=== PATIENT | female | born 1965 | race Caucasian/White ===

== ENCOUNTER 2017-03-14 14:58 | Observation (INO) | payer OTHER ==
[2017-03-14 15:22] LABS: Hematocrit 45 % (35-47); Hemoglobin 14.8 g/dl (12.0-16.0); Mean Corpuscular HGB Conc 33 g/dl (31-36); Mean Corpuscular Hemoglobin 30 pg (27-31); Mean Corpuscular Volume 90 fL (80-97); Mean Platelet Volume 9 um3 (7.4-10.4); Red Blood Count 4.99 10^6/ul (4.0-5.4); Red Cell Distribution Width 14 % (10.5-15)
--- NOTE | 2017-03-14 15:27 | RAD ---
INDICATION: Left-sided weakness. COMPARISON: Comparison is made with a prior chest x-ray study from June 18, 2013. TECHNIQUE: A portable view of the chest was obtained. FINDINGS: Cardiac and mediastinal contours appear to be within normal limits. The lungs are clear. No pleural effusion is seen. IMPRESSION: NO EVIDENCE FOR ACUTE DISEASE.
[2017-03-14 15:37] LABS: Albumin 4.5 g/dL (3.2-5.2); BUN/Creatinine Ratio 12.8 (8-20); Calcium 9.5 mg/dL (8.6-10.3); EGFR African American 99.4 (>60); EGFR Non-African American 77.3 (>60); Globulin 2.8 g/dL (2-4); HDL Cholesterol 55.6 mg/dL; Total Bilirubin 0.5 mg/dL (0.2-1.0); Total Protein 7.3 g/dL (6.4-8.9)
--- NOTE | 2017-03-14 15:38 | RAD ---
INDICATION: Code espinoza, neurologic changes. COMPARISON: There are no prior studies available for comparison. TECHNIQUE: Contiguous axial sections of the brain were obtained from the skull base to the vertex without contrast. FINDINGS: The ventricles, cisterns and sulci are within normal limits. No significant focal abnormality or mass effect is seen. There is no evidence for hemorrhage. No significant focal osseous abnormality is seen. The visualized portion of the paranasal sinuses and mastoid air cells appear clear. The results of this exam were called to referring clinician at 1520 hours. IMPRESSION: NO EVIDENCE FOR GROSS ACUTE INFARCT, MASS EFFECT OR HEMORRHAGE.
[2017-03-14 15:40] LABS: Troponin I 0.01 ng/mL (<0.04)
[2017-03-14] MEDS ORDERED: Iohexol 350* (CONTRAST) 500 ML MDV IV ONE (16:31)
[2017-03-14] MEDS ORDERED: Albuterol HFA INHALER* 8 gm MDI INH PRN (16:44)
[2017-03-14] MEDS ORDERED: Albuterol 2.5 MG/3 ML NEB.SOL* (0.083%) INH PRN (16:44)
--- NOTE | 2017-03-14 17:37 | RAD ---
Indication: Right-sided facial droop. Image sequences: Sagittal and axial T1, axial T2, diffusion and FLAIR images of the brain were obtained. Motion artifact is present. Ventricular structures are midline. No midline shift is noted. Extraction spaces are unremarkable. The brainstem and cerebellopontine angles are unremarkable. No evidence of vasogenic edema is noted. No evidence of restriction of diffusion is noted. No other intracranial mass or hemorrhage is noted. No other high or low signal lesions are identified. The orbits and paranasal sinuses are grossly unremarkable. IMPRESSION: No intracranial lesion is identified. No restriction of diffusion is present.
--- NOTE | 2017-03-14 17:58 | ED ---
Kassidy Carvalho Matthew, scribed for Jason Rivas MD on 03/14/17 at 1502 . Neurological HPI - HPI Summary HPI Summary: A 51 y/o female presents to the ED with left sided weakness. Per EMS, the patient also had right sided facial droop when smiling. While in the ambulance, the EMS noticed the patient was having difficulty answering simple questions such as her address, number of children, date, and current president. The EMS was called to the patient's location for a complaint of chest pain and was given NTG and aspirin POT RUNNER. Currently, the patient knows her name and age. - History of Current Complaint Stated Complaint: AMS Hx Obtained From: Patient, EMS Hx Last Menstrual Period: It ended 05/20 Timing: Constant Current Severity: Moderate Neurological Deficit Location: Facial, LUE, LLE Character: Motor Weakness - mild left leg weakness, and minimal LUE weakness, Paralysis - minimal right sided facial droop, Impaired Speech - speech apahsia in the EMS Aggravating: Unknown Alleviating: Unknown - Allergy/Home Medications Allergies/Adverse Reactions: Allergies Allergy/AdvReac Type Severity Reaction Status Date / Time No Known Allergies Allergy Verified 06/29/16 14:11 Home Medications: Home Medications Albuterol HFA INHALER* [Ventolin HFA Inhaler*] 2 puff INH Q4H PRN 03/14/17 [ History Confirmed 03/14/17] Cyanocobalamin INJ * [Vitamin B12 INJ *] 1,000 mcg IM Q30D 03/14/17 [History Confirmed 03/14/17] Cyclobenzaprine TAB* [Flexeril 10 MG TAB*] 10 mg PO TID PRN 03/14/17 [History Confirmed 03/14/17] Ibuprofen TAB* [Advil TAB*] 1,200 mg PO BID PRN 03/14/17 [History Confirmed ] Naproxen TAB* [Naprosyn 250 mg TAB*] 500 mg PO BID PRN 03/14/17 [History Confirmed 03/14/17] Oxybutynin TAB* [Ditropan TAB*] 5 mg PO BID 03/14/17 [History Confirmed 03/14/17 ] PARoxetine HCL TAB* [Paxil TAB*] 40 mg PO DAILY 03/14/17 [History Confirmed ] clonazePAM TAB(*) [KlonoPIN TAB(*)] 1 mg PO BID PRN MDD 2 mg 03/14/17 [History Confirmed 03/14/17] PMH/Surg Hx/FS Hx/Imm Hx Endocrine/Hematology History: Denies: Hx Diabetes Cardiovascular History: Reports: Hx Angina Denies: Hx Congestive Heart Failure, Hx Coronary Artery Disease, Hx Hypercholesterolemia, Hx Hypertension, Hx Myocardial Infarction, Hx Pacemaker/ ICD, Hx Valvular Heart Disease Respiratory History: Reports: Hx Asthma, Hx Chronic Obstructive Pulmonary Disease (COPD) History: Denies: Hx Renal Disease Musculoskeletal History: Reports: Hx Back Problems Sensory History: Reports: Hx Contacts or Glasses Denies: Hx Hearing Aid Opthamlomology History: Reports: Hx Contacts or Glasses Neurological History: Reports: Hx Migraine Psychiatric History: Reports: Hx Depression Denies: Hx Panic Disorder - Cancer History Hx Chemotherapy: No Hx Radiation Therapy: No - Surgical History Surgery Procedure, Year, and Place: Lt KNEE - ARTHROSCOPIC -09/2015. CHOLECYSTECTOMY- 1988. TUBAL LIGATION -1985. TONSILECTOMY. APPENDECTOMY Hx Anesthesia Reactions: No - Immunization History Date of Tetanus Vaccine: unknown Infectious Disease History: Reports: Hx of Known/Suspected MRSA - Social History Alcohol Use: Occasionally Substance Use Type: Reports: None Smoking Status (MU): Current Every Day Smoker Review of Systems Constitutional: Negative Eyes: Negative ENT: Negative Positive: Chest Pain Respiratory: Negative Gastrointestinal: Negative Genitourinary: Negative Musculoskeletal: Negative Skin: Negative Neurological: Other - speech apahsia - since resolved Positive: Weakness - left sided Psychological: Normal All Other Systems Reviewed And Are Negative: Yes Physical Exam - Summary Physical Exam Summary: VITAL SIGNS: Reviewed. GENERAL: Patient is a well developed and nourished female seems fatigued. Patient is not in any acute respiratory distress. HEAD AND FACE: No signs of trauma. No ecchymosis, hematomas or skull depressions. No sinus tenderness. EYES: PERRLA, EOMI x 2, No injected conjunctiva, no nystagmus. No photophobia. EARS: Hearing grossly intact. Ear canals and tympanic membranes are within normal limits. MOUTH: Oropharynx within normal limits. NECK: Supple, trachea is midline, no adenopathy, no JVD, no carotid bruit, no c- spine tenderness, neck with full ROM. No meningeal signs, no Kernig's or brudzinskis signs. CHEST: Symmetric, no tenderness at palpation LUNGS: Clear to auscultation bilaterally. No wheezing or crackles. CVS: Regular rate and rhythm, S1 and S2 present, no murmurs or gallops appreciated. ABDOMEN: Soft, non-tender. No signs of distention. No rebound no guarding, and no masses palpated. Bowel sounds are normal. EXTREMITIES: FROM in all major joints, no edema, no cyanosis or clubbing. NEURO: Alert and oriented x 3. NIH =2 SKIN: Dry and warm Triage Information Reviewed: Yes Vital Signs On Initial Exam: Temp Pulse Resp BP Pulse Ox 98.4 F 62 20 146/65 100 03/14/17 15:25 03/14/17 15:25 03/14/17 15:25 03/14/17 15:25 03/14/17 15:25 Vital Signs Reviewed: Yes Diagnostics - Laboratory Result Diagrams: 03/14/17 15:15 03/14/17 15:15 Lab Statement: Any lab studies that have been ordered have been reviewed, and results considered in the medical decision making process. - Radiology CXR Xray Interpretation: No Acute Changes - IMPRESSION: NO EVIDENCE FOR ACUTE DISEASE. Radiology Interpretation Completed By: Radiologist - CT Brain CT CT Interpretation: No Acute Changes - IMPRESSION: NO EVIDENCE FOR GROSS ACUTE INFARCT, MASS EFFECT OR HEMORRHAGE. CT Interpretation Completed By: Radiologist - EKG 15:09 Cardiac Rate: NL - 63 bpm EKG Rhythm: Sinus Rhythm EKG Interpretation: No ST elevation NIH Scale - NIH Scale Level of Consciousness: Alert/Keenly Responsive Ask Patient the Month and His/Her Age: Both Correct Ask Pt to Open/Close Eyes and Gas Scrubber Operator/Release Non-Paretic Hand: Both Correctly Best Gaze (Only Horizontal Eye Movement): Normal Visual Field Testing: No Visual Loss Facial Paresis-Pt to Smile & Close Eyes or Grimace Symmetry: Minor Paralysis Motor Function - Right Arm: No Drift-Holds 10 Seconds Motor Function - Left Arm: No Drift-Holds 10 Seconds Motor Function - Right Leg: No Drift-Holds 10 Seconds Motor Function - Left Leg: Drifts LT 10 seconds Limb Ataxia-Must be out of Proportion to Weakness Present: Absent Sensory (Use Pinprick to Test Arms/Legs/Trunk/Face): Normal Best Language (Describe Picture, Name Items): No Aphasia Dysarthria (Read Several Words): Normal Extinction and Inattention: No Abnormality Total Score: 2 Course/Dx - Course Assessment/Plan: A 51 y/o female presents to the ED with left sided weakness. Per EMS, the patient also had right sided facial droop when smiling. While in the ambulance, the EMS noticed the patient was having difficulty answering simple questions such as her address, number of children, date, and current president. The EMS was called to the patient's location for a complaint of chest pain and was given NTG and aspirin POT RUNNER. Currently, the patient knows her name and age. Blood work WNL. Head CT shows no evidence for gross acute infarct , mass effect or hemorrhage. CXR shows no active disease. Discussed the case with Dr. Hartley who came to see the patient and recommenced an MRI and admission into [facility]. She c/o of chest pain while at the doctors office and was give aspirin and NTG POT RUNNER. The symptoms have resolved. At this point I discussed my physical exam findings with Dr. Thomas admission. She is hemodynamically stable and A&Ox3. - Differential Dx Differential Diagnoses Neuro: Positive: Cerebrovascular Accident, Seizure Disorder, Transient Ischemic Attack - Diagnoses Provider Diagnoses: chest pain r/o acs, TIA (transient ischemic attack) During the Visit The Following Alert/Code Occurred: Code Young - Called at 15:00 - Physician Notifications Discussed Care of Patient With: Dr. Hartley (Neurologist) at 15:11 -- Notified of patient's history and will consult on the patinet. Dr. Thomas (Hospitalist ) at 16:07 -- Notified of patient's history and will admit the patient into his services. Discharge - Discharge Plan Condition: Stable Disposition: ADMITTED TO [facility] Referrals: Kyree Torre MD [Primary Care Provider] - The documentation as recorded by the Kassidy cowart Matthew accurately reflects the service I personally performed and the decisions made by me, Jason Rivas MD.
--- NOTE | 2017-03-14 18:47 | RAD ---
Indication: Transient ischemic attack. Contrast: Administered 80.0 ml of OMNIPAQUE 350 mgi/ml CTA of the neck and head was performed after IV contrast administration. Coronal and sagittal reconstructed images were obtained. The origins of the great vessels are unremarkable. The common carotid arteries demonstrates no significant stenosis in the neck. The right internal carotid artery demonstrates no significant stenosis. No carotid dissection is noted. The left internal carotid artery demonstrates no significant stenosis although minimal calcified plaque is noted in the proximal left internal carotid artery. No evidence of carotid artery dissection is noted. Vertebral arteries are patent bilaterally. The lung apices are grossly unremarkable. Inferior thyroid lobes are unremarkable. Submandibular glands and parotid glands are unremarkable. No significant lymphadenopathy is noted. CTA of the head demonstrates no aneurysmal dilatation. No branch occlusion is identified. Anterior and middle cerebral arteries are grossly unremarkable. Posterior cerebral arteries are unremarkable. No evidence of branch occlusion is noted. IMPRESSION: MINIMAL CALCIFIC PLAQUE IS NOTED IN THE PROXIMAL LEFT INTERNAL CAROTID ARTERY. NO HEMODYNAMICALLY SIGNIFICANT STENOSIS IS NOTED. CTA OF THE HEAD DEMONSTRATES NO BRANCH OCCLUSION OR ANEURYSMAL DILATATION. NO EVIDENCE OF CAROTID ARTERY OR VERTEBRAL ARTERY DISSECTION IS NOTED.
[2017-03-14] MEDS: Mometasone/Formoter 200/5 MDI INH SCH (20:31)
[2017-03-14] MEDS: Oxybutynin TAB* 5 MG PO SCH (21:35)
[2017-03-14] MEDS: Heparin VIAL(*) 5000 UNITS/ML VIAL (FIVE THOUSAND) SUBCUT SCH (21:35)
--- NOTE | 2017-03-14 21:53 | CONS ---
NEUROLOGY CONSULTATION: DATE OF CONSULTATION: 03/14/17 LOCATION: She is in the emergency, room 14, to be admitted. REFERRING PHYSICIAN: Dr. Rivas. PRIMARY CARE PHYSICIAN: Dr. Kyree Torre. CHIEF COMPLAINT: Chest pain, difficulty with speech and confusion, numbness. HISTORY OF PRESENT ILLNESS: Heidi Wood is a 51-year-old right-handed woman known to me from recent evaluation for a chronic idiopathic polyneuropathy. She says that for the last few days to a week, she has not been feeling well. She has had episodes of chest pain today and yesterday. She has noted numbness around her mouth yesterday and again today as well. It has happened at least 3 or 4 times. She has not been sleeping well and she has not had much appetite and she has not an explanation for that. She has not been ill recently in terms of fevers or flu or infectious illness symptoms. She was seen in Dr. Torre's office today she said to discuss further treatment of her arthritis, which has really been bothering her. She reported chest pain there and an ambulance was summoned and she was brought into the emergency room. She was given a sublingual nitroglycerin and aspirin. The chest pain resolved. She notes numbness currently on the left side of her jaw and a little bit into the congregational area. She feels intermittently confused since yesterday if not for even longer this past week. She has not any episodes of unresponsiveness. She did have a fall going down some stairs earlier this week and she said she bumped her head, but did not get knocked out. She did not report it to anybody or seek medical attention. Her , Neal, comes in later and said that he has not reported anything to her lately about chest pain or numbness or falls but that she generally is very stoic about these things. She does have a history of migraines with visual and sensory auras in the past, but she has not had a migraine for months she says. She says there is no prior history of cardiac disease. I do note she saw Dr. Conrad in 2012 for chest pain and had a negative Myoview study and to determine that she had noncardiac chest pain. PAST MEDICAL HISTORY: Notable for chronic idiopathic polyneuropathy, ongoing tobacco dependence, COPD, anxiety and depression. MEDICATIONS AT HOME: Consists of: 1. Paxil 40 mg p.o. daily. 2. Ditropan 5 mg p.o. b.i.d. 3. Symbicort 1 puff b.i.d. 4. Clonazepam 1 mg p.o. b.i.d. p.r.n. 5. Cyclobenzaprine 10 mg p.o. t.i.d. ALLERGIES: She does not have any drug allergies. PSYCHOSOCIAL HISTORY: She lives at home with her . She smokes. She does not drink alcohol. FAMILY HISTORY: Noncontributory. REVIEW OF SYSTEMS: Notable for the one fall mentioned above, no recent headaches, but long history of migraines. She denies any increased stressors recently. No recent signs or symptoms of infectious illness. She has not been sleeping well and has been waking up frequently without explanation. She has not had much appetite, so she is not eating much. She has chronic numbness in her feet. She has increased pain in her hips lately. PHYSICAL EXAMINATION: She is well nourished, well hydrated, overweight. Temperature 98.4 temporally, blood pressure 140/60, heart is running about 70 and regular, respirations 18, oxygen saturation is 100% on 2 L. Lungs are clear bilaterally. Heart is in a regular rate and rhythm without murmurs. Carotid pulses are present and there are no bruits. Oral mucosa is moist and atraumatic. Head is atraumatic. She has hammertoe deformities in both feet. Neurologic Exam: Pupils react equally from 4 to 2 mm. Eye movements are full but just to be encouraged to track consistently where she tends to not follow commands in that regard. Visual vela are inconsistent with variable miscounts in both left and right vela. Facial musculature is symmetric. Facial sensation to light touch is reported as symmetric in all 3 divisions of the trigeminal nerve. Palate and tongue appear normal and tongue protrudes in the midline, and palate raises symmetrically. There is no dysarthria. Hearing is intact bilaterally and neck strength is present. Motor exam reveals normal strength in the upper extremities and distally in the upper extremities as well. There is pain with testing proximally at the hips but she has at least resistive strength. She has mild ankle dorsiflexor and more severe toe dorsiflexor weakness bilaterally. She has a pseudo drift with pronator drift testing with the left arm drifting upward and the right drifting down in full extension without pronation. Finger taps are purposeful in the right hand and normal on the left. Sensory exam is notable for absent light touch distally in the lower extremities. Sensory exam in the upper extremities to light touch is normal. Reflexes are intact and symmetric to the knees, grade 1 at the ankles. Plantars are flexor bilaterally. She has poor attention and concentration. At times, she was able to maintain good history with good recollection of the details. Other times, she just seems to drift off and lose her attention and concentration. It only takes a light touch or calling her name to get her to re -attend. Memory is patchy but most of it seems to be pretty accurate for the last several days. Her remote memory is intact. Language is fluent. DIAGNOSTIC STUDIES/LAB DATA: Includes a CT of the brain, the images of which I reviewed and it looks normal. Other laboratory data is notable for normal CBC, normal chemistry profile, troponin 0.01. EKG is reviewed and looks normal to me. IMPRESSION: Variable neurological symptoms without clear anatomical localization in the setting of chest pain. Onset of symptoms is variable over the last several days if not a week. I do not recommend TPA and I am not convinced this is a cerebrovascular process. Nevertheless, I think she should be admitted for a cerebrovascular workup in addition for workup for chest pain. I have discussed her case with Dr. Jono Thomas. Recommend she have an EEG this evening because of the inattentiveness and I have paged our echo vascular technologist. In addition, I would recommend that she have an MRI of the brain, transesophageal echocardiogram unless Cardiology recommends a transesophageal echo, and a CT angiogram of the neck and brain. A fasting lipid profile should be checked. She has been given an aspirin. I would recommend continue that for the time being. I should also note she did have a low vitamin B12 level earlier this year I believe right around the time of the diagnosis of neuropathy and she had been getting B12 injections. We will go ahead and recheck that level while she is here as well. I will follow her with you. [id number]/[facility] #: [id number] FELICITAS
--- NOTE | 2017-03-14 22:35 | HP ---
HISTORY AND PHYSICAL: DATE OF ADMISSION: 03/14/17 PRIMARY CARE PROVIDER: Kyree Torre MD ATTENDING PHYSICIAN: Jono Thomas MD* (dictated by Yu Vivar NP) CHIEF COMPLAINT: Left-sided weakness with right-sided facial droop when smiling , chest discomfort, and reported slurred speech at home. HISTORY OF PRESENT ILLNESS: Ms. Wood is a 51-year-old female with past medical history significant for COPD, migraines, narcolepsy, depression, and neuropathy who was at her primary care provider's office for complaints of chest discomfort that had been lasting for approximately 40 minutes. She had 3 or 4 episodes over the last week. The patient states that when these episodes started, she developed numbness first in her lower jaw that then went to her upper jaw during the episodes of chest pain. She also has noted intermittent slurred speech and some weakness. She has noticed that over the last week, she has been dropping things more with her left hand. She felt this was related to her arthritis. She has also noticed some confusion such as placing roast beef in the cupboard. The patient's primary care provider called EMS to transport the patient to the emergency room. It is noted that the patient was having difficulty answering simple questions such as her address, number of children, date, and the current president. The patient was given nitro sublingual and aspirin 324 mg and placed on 4 L of oxygen at the primary care provider's office. She was transported to the emergency room for further evaluation. While in the emergency room, the patient's chest pain resolved. She was found to be alert and oriented x3 with a NIH score of 2. The patient was seen in consultation by Neurology who felt that this was not likely a stroke, but requested MRI of her brain and head CTA in addition to an EEG. The patient denies any recent fever or chills. She does report chest discomfort over her whole chest. She states this different than pain she has had in the past and she presented for chest pain back in 2012, it was more left-sided pain. At that time, the patient underwent a stress test that was low risk. The patient denies any shortness of breath, but she also reports nausea with her pain and in addition to diaphoresis with pain and some dizziness. The patient had a head CT showing no evidence for gross infarct, mass effect, or hemorrhage. She also underwent a chest x-ray showing no evidence of acute disease. She had an EKG showing normal sinus rhythm at rate of 63. This EKG is similar to previous EKG. She had labs that were unremarkable. A troponin of 0.01. Hospitalists were asked to evaluate the patient for admission. PAST MEDICAL HISTORY: 1. Chronic obstructive pulmonary disease. 2. Posttraumatic stress disorder. 3. Migraines. 4. Narcolepsy. 5. Vitamin B12 deficiency. 6. Peripheral vascular disease. 7. Neuropathy. 8. Chronic low back pain. 9. Cervicalgia. 10. Depression. 11. Arthritis. PAST SURGICAL HISTORY: 1. Status post tubal ligation. 2. Status post tonsillectomy. 3. Status post appendectomy. 4. Status post left knee arthroscopy. HOME MEDICATIONS: Include: 1. Albuterol nebulizer 2.5 mg inhalation every 4 hours as needed for shortness of breath or wheeze. 2. Albuterol HFA inhaler 2 puff inhalation every 4 hours as needed for shortness of breath or wheeze. 3. Symbicort 160/4.5 mcg 1 puff inhalation twice daily. 4. Paxil 40 mg oral daily. 5. Oxybutynin 5 mg oral twice daily. 6. Naproxen 500 mg oral twice daily as needed for pain. 7. Ibuprofen 1200 mg oral twice daily as needed for headache. 8. Flexeril 10 mg oral 3 times daily as needed for muscle spasms. 9. Vitamin B12 1000 mcg intramuscularly every 30 days. 10. Clonazepam 1 mg oral twice daily as needed for anxiety. ALLERGIES: No known drug allergies. FAMILY HISTORY: The patient's father had a history of heart disease. She is unclear of the details. The patient's father and paternal grandmother had a history of diabetes mellitus. The patient's maternal grandmother had a history of breast cancer. SOCIAL HISTORY: The patient is a current smoker, smoking a half-a-pack a day for the last 25 years. She occasionally drinks alcoholic beverages. She denies use of any recreational drug use. She is unemployed. Her surrogate decision maker would be her sister, Maty Yanes, in the event that she is unable to make decisions for herself. REVIEW OF SYSTEMS: I performed a 14 point review of systems. All the pertinent positives and negatives are mentioned in the history of present illness. Remaining review of systems are negative. PHYSICAL EXAMINATION GENERAL APPEARANCE: The patient is alert, pleasant, appears to be in no acute distress. VITAL SIGNS: Temperature 98.4, heart rate 65, respiratory rate 14, O2 sat 99% on 2 liters via nasal cannula, and blood pressure 144/74. HEENT: Normocephalic, atraumatic. Pupils are equal and reactive to light. Extraocular movements are intact. RESPIRATORY: There is no accessory muscle use and the the lungs are clear to auscultation bilateral. CARDIOVASCULAR: Regular rate and rhythm. S1, S2 present. There is no murmur, rubs, or gallops heard. ABDOMEN: Soft, nontender, and nondistended. There are bowel sounds present x4. EXTREMITIES: There is no lower extremity edema. DP and PT pulses are 2+ and symmetric. MUSCULOSKELETAL: There is no clubbing or cyanosis noted. NEUROLOGIC: The patient is alert and oriented x4. Cranial nerves II through XII were grossly intact. The patient is able to do [id number] bilateral, but has slight difficulties with the left and missed her nose. The patient is able to do heel from ankle to knee bilateral but has a very slow movement with the left. The patient has good plantarflexion strength on both extremities, does not have good dorsiflex strength on the left. The patient's right hand rubble placer is weaker than the left hand rubble placer. The patient had some difficulties with extraocular eye movements. She was able to perform them, but needed a lots of direction to do it. PSYCHOLOGICAL: The patient is calm and cooperative. SKIN: There is no rashes or abnormalities seen. DIAGNOSTIC STUDIES/LAB DATA: Sodium 136, potassium 4.0, chloride 103, CO2 28, BUN 10, creatinine 0.78, and glucose 83. Troponin 0.01. White blood cell count 6.0, hemoglobin 14.8, hematocrit 45, and platelet count 221. EKG shows a sinus rhythm with a rate of 63. This EKG is similar to previous EKGs from 12/22/11 and 03/15/13. There were no acute signs of ischemia. Chest x-ray from today. Radiologist impression: No evidence of acute disease. Head CT from today. Radiologist impression: No evidence for gross acute infarcts, mass effect, or hemorrhage. IMPRESSION: Ms. Wood is a 51-year-old female with past medical history significant for chronic obstructive pulmonary disease, migraines, peripheral vascular disease, neuropathy and depression presents to the emergency room with complaints of chest discomfort and weakness. She was reported to have a right facial droop by EMS and slurred speech and odd behavior. She will be admitted as an observation for chest pain and CVA workup. ASSESSMENT/PLAN: 1. Right facial droop, slurred speech, confusion, mouth numbness, and weakness : The patient has had a brain CT with no evidence of gross acute infarct. Her neurological exam has some left lower extremity weakness and right upper extremity weakness. Per the patient's family, her facial droop has almost resolved and is just very slight on the right side. The patient has been seen by Dr. Hartley. She has an MRI and a head CTA pending. She will have an echo in the morning with a bubble study. She also had an EEG with studies. The read on that pending. We will check fasting lipids in the morning. We will also add a hemoglobin A1C to the patient's ER labs. We will monitor her on telemetry. The patient will have neurological checks. She will be able to have a diet when she has beside dysphagia screening and passes that and also have a physical therapy evaluation due to her weakness. She has a urinalysis pending. 2. Chest pain: The patient is currently chest pain free. She will be monitored on telemetry. We will trend her troponins. We will also check a hemoglobin A1C, fasting lipids, and order a chemical nuclear stress test in the morning. We will do chemical due to the patient's weakness, I do not believe, she will be able to walk on the treadmill. 3. Chronic obstructive pulmonary disease: The patient is currently not in exacerbation. She will be continued on her home Symbicort or auto-substitute here at the hospital. She will have albuterol inhalers and nebulizers as needed. 4. Depression: She will be continued on her home Paxil. 5. Fluids, electrolytes, and nutrition: She would be on a heart-healthy diet. 6. Code status: Full code. 7. DVTs prophylaxis: The patient is a moderate risk and will have subcu heparin. 8. Disposition: Observation for rule out transient ischemic attack and acute coronary syndrome. TIME SPENT: Time for this admission was 60 minutes and 35 minutes was spent face- to-face with the patient, discussing medications, past medical history, and the events leading to her arrival today and performing a physical examination. The case was reviewed with the attending, Dr. Thomas, who agrees with the plan of care. Reviewed by JEISON SCOTT-Randall 03/17/17 1607 CC: Kyree Torre MD * [id number]/[facility] #: [id number] MTDD
[2017-03-15 01:10] LABS: Urine Bilirubin Negative (Negative); Urine Glucose Negative (Negative); Urine Nitrite Negative (Negative)
[2017-03-15] MEDS: Heparin VIAL(*) 5000 UNITS/ML VIAL (FIVE THOUSAND) SUBCUT SCH ×2 (05:41→13:58)
[2017-03-15] MEDS: Mometasone/Formoter 200/5 MDI INH SCH (07:24)
[2017-03-15 07:42] VITALS: BP 134/54
[2017-03-15] MEDS: Oxybutynin TAB* 5 MG PO SCH ×2 (08:41→10:13)
[2017-03-15] MEDS: PARoxetine HCL TAB* 40 MG PO SCH ×2 (08:41→10:13)
[2017-03-15 09:12] LABS: HDL Cholesterol 46.9 mg/dL
--- NOTE | 2017-03-15 10:27 | ECHO ---
Patient: NEVA SAAB [facility] Rec#: [id number] : 1965 Date: 03/15/2017 Age: 51y Height: 182.88 cm / 72.0 in Weight: 99.79 kg / 219.9 lbs Sex: F BSA: 2.22 Room#: 431 Admit Date#: 03/14/2017 Type: Inpatient Referring: Yu Dean NP Reading: Andre Conrad MD Dock Operator: Leslie Victor RDCS,RDMS CC: Kyree Torre MD Transthoracic Echocardiogram Indication: TIA, CP BP: 120/57 HR: 58 Rhythm: Bradycardia Findings History: COPD, PVD, PTSD, migraines, smoker. Technical Comments: The study quality is fair. Completed 1015 Left Ventricle: The left ventricular chamber size is normal. Mild concentric left ventricular hypertrophy is observed. The estimated ejection fraction is 55-60%. There is no consistent Doppler evidence of clinically significant diastolic dysfunction. Left Atrium: The left atrium is mildly dilated. Right Ventricle: The right ventricular chamber size and systolic function are within normal limits. Right Atrium: The right atrial cavity size is normal. A patent foramen ovale is not demonstrated with color Doppler and agitated contrast. Aortic Valve: The aortic valve is trileaflet. The aortic valve leaflets are mildly thickened. There is a trace of aortic regurgitation. There is no evidence of aortic stenosis. Mitral Valve: The mitral valve leaflets do not appear thickened. There is mild mitral regurgitation. The mitral regurgitant jet is eccentric. There is no evidence of mitral stenosis. Tricuspid Valve: The tricuspid valve leaflets are normal. There is trace tricuspid regurgitation. Unable to estimate the right ventricular systolic pressure. Pulmonic Valve: The pulmonic valve appears normal. There is a trace pulmonic regurgitation. Pericardium: There is no significant pericardial effusion. Aorta: The aortic root appears normal. There is no dilatation of the aortic arch. Pulmonary Artery: The main pulmonary artery is not well visualized. Venous: The inferior vena cava appears normal in size. There is a greater than 50% respiratory change in the inferior vena cava dimension. Contrast: Intravenous agitated saline contrast was used to assess intracardiac shunting. Summary: There was not any prior study for comparison. Conclusions The left ventricular chamber size is normal. Mild concentric left ventricular hypertrophy is observed. The estimated ejection fraction is 55-60%. There is no consistent Doppler evidence of clinically significant diastolic dysfunction. The left atrium is mildly dilated. A patent foramen ovale is not demonstrated with color Doppler and agitated contrast. There is a trace of aortic regurgitation. There is mild mitral regurgitation. There is trace tricuspid regurgitation. Unable to estimate the right ventricular systolic pressure. There is a trace pulmonic regurgitation. In the RV from PLAX hyperechoic area adjacent to free wall, prominent ?moderator band or prominent eustachian valve in RV apex A4C Measurements Name Value Normal Range RVIDd (AP) 2D 1.8 cm (0.9 - 2.6) RVDdMajor (2D) 2.4 cm (2.2 - 4.4) RAd ISD 4CH 4 cm (3.4 - 4.9) RA (A4C)W 3.9 cm (2.9 - 4.6) IVSd (2D) 1 cm (0.6 - 1) LVPWd (2D) 1.1 cm (0.6 - 1) LVIDd (2D) 4.8 cm (3.6 - 5.4) LVIDs (2D) 2.5 cm - LV FS (2D) 48 % (25 - 45) Aortic Annulus 2 cm (1.4 - 2.6) Ao root diameter (2D) 2.7 cm (2.1 - 3.5) Ascending Ao 2.7 cm (2.1 - 3.4) Aortic arch 3.1 cm (1.8 - 3.4) LA dimension (AP) 2D 3.9 cm (2.3 - 3.8) LAd ISD 4CH 5.5 cm (2.9 - 5.3) LA ISD 4CH W 4.9 cm (2.5 - 4.5) Name Value Normal Range LA ESV SP 4CH (A/L) 73.52 ml - LA ESV SP 2CH (A/L) 98.63 ml - LA ESV BP (A/L) 90.33 ml - LA ESV BP (A/L) index 41 ml/m2 - LA ESV SP 4CH (MOD) 69.55 ml - LA ESV SP 2CH (MOD) 94.05 ml - Name Value Normal Range MV E-wave Vmax 1.2 m/sec - MV deceleration time 181.2 msec - MV A-wave Vmax 0.8 m/sec - MV E:A ratio 1.5 ratio - P. vein S-wave Vmax 0.7 m/sec - P. vein D-wave Vmax 0.4 m/sec - P. vein S:D Vmax ratio 1.7 ratio - P. vein A-wave duration 97 msec - LV septal e' Vmax 0.09 m/sec - LV lateral e' Vmax 0.1 m/sec - LV E:e' septal ratio 13.3 ratio - LV E:e' lateral ratio 12 ratio - Name Value Normal Range AV Vmax 1.4 m/sec - AV VTI 34.4 cm - AV peak gradient 8 mmHg - AV mean gradient 4.5 mmHg - LVOT Vmax 1 m/sec - LVOT VTI 26 cm - LVOT peak gradient 4 mmHg - LVOT mean gradient 2.2 mmHg - PIYUSH Vmax 0.7 m/sec - Name Value Normal Range MV Vmax 1.2 m/sec - MV VTI 34.7 cm - MV peak gradient 6 mmHg - MV mean gradient 2.7 mmHg - MV PHT 60 msec - MR Vmax 5.4 m/sec - MR VTI 220 cm - MR flow (PISA) 97.5 ml/sec - MR ERO 20 cm2 - MR PISA radius 0.7 cm - MR alias Vmax 35.34 cm/sec - MVA (PHT) 3.7 cm2 - Name Value Normal Range RAP 8 mmHg - IVC diameter 1.8 cm - Name Value Normal Range PV Vmax 0.7 m/sec - PV peak gradient 2 mmHg -
[2017-03-15] MEDS ORDERED: Ibuprofen TAB* 600 MG PO PRN (11:08)
[2017-03-15] MEDS ORDERED: Regadenoson* 0.4 MG/5 ML SYRINGE ONE (12:19)
--- NOTE | 2017-03-15 13:30 | RAD ---
Edited for charges. Indication: Chest pain. Myocardial perfusion scan was performed utilizing 1 day protocol. Rest myocardial perfusion was performed after intravenous injection of 10.7 mCi of technetium 99m tetrofosmin. Pharmacological stress was applied and 25.66 mCi of technetium 99 and tetrofosmin was injected for the stress portion of study. There is homogeneous distribution of the radiotracer throughout the left centered. There is no definite evidence of fixed or reversible perfusion defect identified. The ejection fraction at stress is 72%. Evaluation of wall motion demonstrates no focal wall motion abnormality. IMPRESSION: No evidence of fixed or reversible perfusion defect is identified. ASSESSMENT: Low risk Based on imaging criteria from ACC/AHA 2002 Guideline Update for the Management of Patients With Chronic Stable Angina Table 23. Noninvasive Risk Stratification. MTDD
--- NOTE | 2017-03-16 03:17 | EEG ---
ELECTROENCEPHALOGRAPHY: DATE OF STUDY: 03/14/17 - ROOM #431 LOCATION: She is in the emergency room to be admitted. REFERRING PHYSICIAN: Dr. Rivas. CLINICAL PROBLEM: Episodes of confusion and diminished responsiveness. Medications include paroxetine. Rule out seizures. REPORT: This 16-channel EEG is remarkable for background rhythms consisting of a well-formed alpha rhythm in the posterior derivations at 9 cycles per second, which is symmetric. Moderate voltage bifrontal beta rhythms are noted and are symmetric. The patient drowses intermittently with central and bitemporal beta rhythms noted. The patient may briefly sleep with vertex slowing, but does not clearly fall into stage 2 sleep. Activation procedures are not attempted. There are no focal, lateralized, or epileptiform abnormalities. CLINICAL IMPRESSION: Normal awake EEG. [id number]/[facility] #: [id number] [facility]
--- NOTE | 2017-03-19 07:14 | PN ---
Hospitalist Progress Note . HOSPITALIST DISCHARGE NOTE: See dc instructions and summary by me. Patient stable for dc dc instructions reviewed with the patient at the bedside. DC patient home today.
--- NOTE | 2017-03-19 10:02 | DS ---
CC: Dr. Kyree Torre DISCHARGE SUMMARY: DATE OF ADMISSION: 03/14/17 DATE OF DISCHARGE: 03/15/17 STATUS DURING HOSPITALIZATION: Observation. PRIMARY CARE PHYSICIAN: Kyree Torre MD. PRINCIPAL DISCHARGE DIAGNOSIS: Chest pain, status post low risk stress test, with concomitant vario us neurological symptoms without clear etiology - differential is broad, including complex migraine, posttraumatic stress disorder/anxiety, or sleep disordered breathing and effect of benzodiazepine, which was recently started. SECONDARY DIAGNOSES: 1. Chronic idiopathic polyneuropathy. 2. Ongoing tobacco dependence. 3. Chronic obstructive pulmonary disease. 4. Anxiety. 5. Depression. DISCHARGE MEDICATION REGIMEN: Stop Klonopin unless ordered to reinitiate - possibly symptoms relati ng to worsening of COPD and CO2 retention, which can cause morbilliform symptomatology. Continue: 1. Symbicort 160/4.5 strength - one puff inhaled twice daily. 2. Albuterol 2.5 mg strength, one inhalation every 4 hours as needed. 3. Paxil 40 mg by mouth daily. 4. Oxybutynin 5 mg by mouth twice daily. 5. Naprosyn 500 mg by mouth twice daily. 6. Ibuprofen twice daily as needed (deconflict with Naprosyn). 7. Albuterol HFA inhaler two puffs inhaled every 4 hours as needed for wheezing. 8. Flexeril 10 mg by mouth 3 times daily as needed for back pain. 9. Vitamin B12 injection every month. HISTORY OF PRESENT ILLNESS AND HOSPITAL COURSE: Please see the H and P by Dr. Jono Thomas as wel l as the neurology consultation by Dr. Florian Hartley. In brief, Ms. Wood is a 51-year-old right- handed woman known to Dr. Hartley in the outpatient setting for chronic idiopathic polyneuropathy. The patient reported that for the past few days to a week she has not feeling well. She had an epis ode of chest pain on the day of admission and the day prior to admission. She also noted numbness a round her mouth. This happened the past few days, about 3 or 4 times in total. The patient has not been sleeping well and has not had much appetite. She did describe recently starting Klonopin at [facility], which may have caused some problems for her. The patient had chest pain at Dr. Torre's office . She is also complaining of arthritis. The patient was also reporting numbness on the left side of her jaw and a little bit into her lutheran area. The patient did not report her symptomatology immed iately and her stated that she did not say anything to him about it. The patient was miriam t to the hospital and placed on observation status for a cardiac and neurology workup. Her workup i ncluded a nuclear medicine stress test, which was rated as low risk by ACC/AHA 2002 criteria. She di d have a brain MRI and head CTA. The brain MRI did not show any evidence of focal ischemic areas an d the CTA did not show any hemodynamically significant stenosis. She had a transthoracic echocardio gram, which besides showing some left ventricular hypertrophy, did not show any structural defects t hat would explain her presentation. The patient did have an EEG and this was rated as a normal awak e EEG. The patient's symptomatology largely resolved when I evaluated her on 03/15/17. We discusse d the possibility that the Klonopin use at night has worsened her COPD and perhaps caused some CO2 r etention, which can cause a variety of symptoms. Likewise, her anxiety/PTSD or history of complex m igraines could be reasonable explanations for this. At the point of discharge, she is asymptomatic. She is reassured by the various negative tests that were run during this hospitalization. I review ed all those results with her at the bedside and this took about 40 minutes to go through all of the m. The only medication change was the cessation of Klonopin, especially in the context of her fairl y significant medication regimen. She is going to follow up with Dr. Torre next week and with Dr. Karly sorto in the outpatient setting where she is already a patient. For more details regarding the hospitalization, please see the full medical record and the all test results. This is a highly summarized account of a complex hospitalization. CONDITION AT DISCHARGE: Stable. [id number]/[facility] #: [id number]
== END 2017-03-15 17:04 | disposition home or self-care (01) ==
LOC: ED 14:58 → MEDTELE 16:10
PROVIDERS: ADMIT Hospitalist; ATTEND Internal Medicine
DX: R07.9 Chest pain, unspecified (principal); R29.810 Facial weakness; R53.1 Weakness; R20.0 Anesthesia of skin; R47.81 Slurred speech; G60.9 Hereditary and idiopathic neuropathy, unspecified; I51.7 Cardiomegaly; J44.9 Chronic obstructive pulmonary disease, unspecified; G47.419 Narcolepsy without cataplexy; F41.9 Anxiety disorder, unspecified; F32.9 Major depressive disorder, single episode, unspecified; Z79.899 Other long term (current) drug therapy; F17.210 Nicotine dependence, cigarettes, uncomplicated
CPT/HCPCS: 36415; 70450; 70496; 70498; 70551; 71010; 78452; 80053; 80061; 81003; 83036; 83605; 84484; 85025; 85610; 85730; 86850; 86900; 86901; 87641; 93005; 93306; 94640; 95816; 96372; 99285; A9270-GY; A9502; G0378; J1644; J2785; Q9967

== ENCOUNTER 2017-06-18 08:49 | Day surgery (SDC) | payer OTHER ==
[~2017-06-18 08:49] MED LIST: Buffered Lidocaine 0.9% SYRIN* 5 ML/SYR SYRINGE INTRADERM ONE; Dexamethasone IV* 4 MG/ML 1 ML (4 MG) IV SLOW PU ONE; Famotidine IV* 10 MG/ML 2 ML (20 mg) IV ONE
[2017-06-18] MEDS ORDERED: ceFAZolin 2 GM PREMIX (*) 50 ML IVPB ONE (09:12)
[2017-06-18] MEDS ORDERED: Dexamethasone IV* 4 MG/ML 1 ML (4 MG) ONE (09:12)
[2017-06-18] MEDS ORDERED: Famotidine IV* 10 MG/ML 2 ML (20 mg) ONE (09:12)
[2017-06-18] MEDS ORDERED: HYDROcodone/ACETAMIN 5-325 MG* 1 TAB PO PRN (09:49)
[2017-06-18] MEDS ORDERED: PROCHLORPERAZINE INJ 5 MG/ML 2 ML VIAL IV PRN (09:49)
[2017-06-18] MEDS ORDERED: Propofol* 10 MG/ML 20 ML BTL IV PUSH ONE (10:04)
[2017-06-18] MEDS ORDERED: Lidocaine 2% PF * 5 ML VIAL ONE (10:04)
[2017-06-18] MEDS ORDERED: fentaNYL* 50 MCG/ML 2 ML VIAL (100 MCG VIAL) ONE ×4 (10:04→12:51)
[2017-06-18] MEDS ORDERED: Midazolam* 1 MG/ML 2 ML VIAL (2 MG) ONE (10:04)
[2017-06-18] MEDS ORDERED: Ketorolac INJ* 30 MG/ML 1 ML VIAL ONE (10:36)
[2017-06-18] MEDS ORDERED: Ondansetron INJ* 2 MG/ML VIAL ONE (11:31)
[2017-06-18] MEDS ORDERED: oxyCODONE/Acetamin 5/325 MG* TAB ONE (12:51)
[2017-06-18] MEDS ORDERED: PROCHLORPERAZINE INJ 5 MG/ML 2 ML VIAL ONE (12:51)
[2017-06-18] MEDS: fentaNYL* 50 MCG/ML 2 ML VIAL (100 MCG VIAL) IV PRN ×2 (12:53→12:58)
[2017-06-18] MEDS: oxyCODONE/Acetamin 5/325 MG* TAB PO PRN ×2 (12:55→12:56)
[2017-06-18 15:44] VITALS: BP 132/65
--- NOTE | 2017-06-19 01:01 | OP ---
DATE OF OPERATION: 06/18/17 - [facility] DATE OF : 61 SURGEON: Hector Camilo MD ANESTHESIOLOGIST: Sharon Jimenez MD ANESTHESIA: General PRE-OP DIAGNOSIS: Torn left peroneal tendon and claw toe deformity 1, 2, 3, 4 and 5 toes. POST-OP DIAGNOSIS: Torn left peroneal tendon and claw toe deformity 1, 2, 3, 4 and 5 toes with some partial thickness tearing of the peroneus brevis tendon. OPERATIVE PROCEDURE: DESCRIPTION OF PROCEDURE: The patient was taken to the operating room where a longitudinal incision was made behind the fibula down toward the fifth metatarsal base. We were careful to preserve the sural nerve and the subcutaneous tissue. The retinaculum was opened behind the fibula to allow full visualization of the peroneal tendon. The tendon itself was intact, but there was thickening and some degenerative striations behind the fibula. These were debrided with the 15-blade and then tubularizing the tendon with a running 4-0 Vicryl suture. The peroneus longus tendon was intact; however, there was a stenosis of the tendon distally at the peroneal tubercle. So this was opened with an 15-blade and then we excised completely the peroneal tubercle with the rongeur and a bone tamp. Both tendons appeared to be intact, gliding well at this point, so we repaired the retinaculum with through bone sutures with #1 Vicryl and closed the subcu with 2-0 Vicryl and darwin. We then performed an elliptical incisions over the second, third and fourth PIP joints of the toes. Condyles were removed with the small micro sagittal saw and then we prepared this for the PRO-TOE implants. This involved drilling a guide pain in the proximal phalanx and the small broach in the middle phalanx. The implants were then placed sequentially with the screw in base and the [place] broadened-blade, which was used to anchor the middle phalanx. Two, three, four and five toes were then closed with interrupted Nylon sutures dorsally. The big toe was opened up in an S-shaped incision over the IP joint. Condyles removed with the microsagittal saw and then pinned longitudinally with compression of 4.0 mm screws. These were paired screws. We then irrigated thoroughly and closed with Nylon sutures. Compression dressing plaster splint applied. [id number]/[facility] #: [id number] FELICITAS
--- NOTE | 2017-06-19 07:16 | RAD ---
INDICATION: Left foot peroneal tendon repair. COMPARISON: Comparison is made with a prior x-ray study of the left foot from April 10, 2017. TECHNIQUE: 4.2 seconds of intermittent fluoroscopic guidance were provided and 2 spot films of the left forefoot were obtained in the operating room. FINDINGS: The films demonstrate placement of surgical screw spanning the interphalangeal joint of the great toe and the proximal interphalangeal joints of the second through fourth toes. IMPRESSION: INTRAOPERATIVE CONTROL FILMS. CPT II Codes: 6045F
== END 2017-06-18 15:30 | disposition home or self-care (01) ==
LOC: OR 08:49
PROVIDERS: ATTEND Orthopaedic Surgery
DX: M21.532 Acquired clawfoot, left foot (principal); M76.72 Peroneal tendinitis, left leg; G62.9 Polyneuropathy, unspecified; S86.312A Strain of muscle(s) and tendon(s) of peroneal muscle group at lower leg level, left leg, initial encounter; X58.XXXA Exposure to other specified factors, initial encounter; M54.5 Low back pain; G89.29 Other chronic pain; F32.9 Major depressive disorder, single episode, unspecified; J45.909 Unspecified asthma, uncomplicated; F17.210 Nicotine dependence, cigarettes, uncomplicated
CPT/HCPCS: 76001; A9270-GY; C1713; C1776; J0690; J0780; J1100; J1885; J2250; J2405; J2704; J3010

== ENCOUNTER 2017-08-15 14:07 | Emergency (ER) | payer OTHER ==
[2017-08-15 14:26] VITALS: BP 140/65
--- NOTE | 2017-08-15 15:17 | UC ---
Lower Extremity/Ankle HPI - HPI Summary HPI Summary: SEEN BY DR HUERTA, ORTHOPEDICS, FOR LEFT FOOT FRACTURES, SURGERY IN MAY. CURRENLT IN IN CAM BOOT. TWO DAYS OF LEFT CALF PAIN, SWELLING. RIGHT SIDED BACK PAIN WITH COUGHING. NO FEVER. 1- 1.5 PPD SMOKER. - History of Current Complaint Chief Complaint: UCLowerExtremity Stated Complaint: LEFT CALF PAIN Time Seen by Provider: 08/15/17 14:10 Hx Obtained From: Patient, Family/Imaging Engineer Hx Last Menstrual Period: It ended 05/20 Onset/Duration: Gradual Onset, Lasting Days Severity Initially: Moderate Severity Currently: Moderate Pain Intensity: 8 Pain Scale Used: 0-10 Numeric Aggravating Factor(s): Standing, Ambulation Alleviating Factor(s): Rest, Elevation - Risk Factors Gout Risk Factors: Negative DVT Risk Factors: Smoking, Recent Surgery - Allergies/Home Medications Allergies/Adverse Reactions: Allergies Allergy/AdvReac Type Severity Reaction Status Date / Time No Known Allergies Allergy Verified 08/15/17 14:14 Home Medications: Home Medications Levothyroxine TAB* [Synthroid 25 MCG TAB*] 1 tab QAM 08/15/17 [History Confirmed 08/15/17] PMH/Surg Hx/FS Hx/Imm Hx Previously Healthy: Yes - Surgical History Surgical History: Yes Surgery Procedure, Year, and Place: Lt KNEE - ARTHROSCOPIC -09/2015. CHOLECYSTECTOMY- 1988. TUBAL LIGATION -1985. TONSILECTOMY. APPENDECTOMY. LEFT TENDON REPAIR - Family History Known Family History: Negative: Blood Disorder - Social History Occupation: Employed Full-time Lives: With Family Alcohol Use: Occasionally Alcohol Amount: 2 X YEAR Substance Use Type: None Smoking Status (MU): Current Every Day Smoker Type: Cigarettes Amount Used/How Often: 1/2 PPD Household Exposure Type: Cigarettes Cessation Counseling: Patient Advised to Stop - Immunization History Most Recent Influenza Vaccination: NONE 2017 Most Recent Tetanus Shot: she is unsure if she's up to date Review of Systems Constitutional: Negative Skin: Negative Eyes: Negative ENT: Negative Respiratory: Shortness Of Breath, Cough Cardiovascular: Negative Gastrointestinal: Negative Genitourinary: Negative Musculoskeletal: Arthralgia, Calf Tenderness, Myalgia Neurological: Negative Psychological: Negative Is Patient Immunocompromised?: No All Other Systems Reviewed And Are Negative: Yes Physical Exam Triage Information Reviewed: Yes Appearance: Well-Appearing, No Pain Distress, Well-Nourished Vital Signs: Initial Vital Signs Temp 97.8 F 08/15/17 14:16 Pulse 73 08/15/17 14:16 Resp 18 08/15/17 14:16 BP 140/65 08/15/17 14:16 Pulse Ox 99 08/15/17 14:16 Vital Signs Reviewed: Yes Eye Exam: Normal ENT Exam: Normal Dental Exam: Normal Neck exam: Normal Neck: Positive: Supple, Nontender, No Lymphadenopathy Respiratory Exam: Other - COUGH Respiratory: Positive: Chest non-tender, Lungs clear, Normal breath sounds, No respiratory distress, No accessory muscle use Cardiovascular Exam: Normal Cardiovascular: Positive: RRR, No Murmur, Pulses Normal Abdominal Exam: Normal Abdomen Description: Positive: Nontender, No Organomegaly Musculoskeletal: Positive: Strength Limited @ - LEFT FOOT/ANKLE, ROM Limited @ - LEFT FOOT ANKLE, Edema @ - LEFT CALF Neurological Exam: Normal Psychological Exam: Normal Skin Exam: Normal Lower Extremity Course/Dx - Differential Dx/Diagnosis Differential Diagnosis/HQI/PQRI: Fracture (Closed), Sprain, Strain Provider Diagnoses: LEFT CALF PAIN - Physician Notifications Discussed Patient Care With: Alina Mir Time Discussed With Above Provider: 14:40 Instructed by Provider To: MD Will See In ED Discharge - Discharge Plan Condition: Stable Disposition: OTHER Discharge Disposition Comment: ADVISED TO GO TO ED, REFUSED AMBULANCE Patient Education Materials: Leg Pain (ED) Referrals: Kyree Torre MD [Primary Care Provider] - Additional Instructions: YOU HAVE REFUSED THE OFFER OF AMBULANCE TRANSPORT AND HAVE ELECTED TO GO TO THE EMERGENCY DEPARTMENT BY PRIVATE CAR. YOU ARE ADVISED TO PROCEED SAFELY, BUT DIRECTLY TO THE EMERGENCY DEPARTMENT FOR CONTINUED EVALUATION.
== END 2017-08-15 14:49 ==
LOC: UCCORT 14:07
DX: M79.1 Myalgia (principal); M54.9 Dorsalgia, unspecified; R05 Cough; F17.210 Nicotine dependence, cigarettes, uncomplicated
CPT/HCPCS: 99212; G0463

== ENCOUNTER 2018-06-12 11:24 | Emergency (ER) | payer OTHER ==
[2018-06-12 11:59] VITALS: BP 138/63
--- NOTE | 2018-06-12 12:22 | UC ---
Lower Extremity/Ankle HPI - HPI Summary HPI Summary: Pt c/o right mid lateral foot pain after dropping 12 packaged cans of cat food from height of 3 ft on right foot. - History of Current Complaint Chief Complaint: UCLowerExtremity Stated Complaint: RIGHT FOOT INJURY Time Seen by Provider: 06/12/18 11:30 Hx Obtained From: Patient Hx Last Menstrual Period: It ended 05/20 ?: No Onset/Duration: Sudden Onset, Lasting Days, Still Present Severity Initially: Moderate Severity Currently: Mild Pain Intensity: 5 Aggravating Factor(s): Standing, Ambulation Alleviating Factor(s): Rest, Elevation Able to Bear Weight: Yes - Risk Factors Gout Risk Factors: Age Over 40, Hypertension DVT Risk Factors: Negative Septic Arthritis Risk Factor: Negative - Allergies/Home Medications Allergies/Adverse Reactions: Allergies Allergy/AdvReac Type Severity Reaction Status Date / Time No Known Allergies Allergy Verified 06/12/18 12:00 Home Medications: Home Medications Methylphenidate HCl [Methylphenidate HCl ER] 10 mg PO DAILY 06/12/18 [History Confirmed 06/12/18] Methylphenidate HCl [Methylphenidate LA] 10 mg PO DAILY 06/12/18 [History Confirmed 06/12/18] Omeprazole 20 mg PO DAILY 06/12/18 [History Confirmed 06/12/18] hydroCHLOROthiazide [Hydrochlorothiazide] 12.5 mg PO DAILY 06/12/18 [History Confirmed 06/12/18] PMH/Surg Hx/FS Hx/Imm Hx Previously Healthy: Yes Endocrine History: Thyroid Disease - Surgical History Surgical History: Yes Surgery Procedure, Year, and Place: Lt KNEE - ARTHROSCOPIC -09/2015. CHOLECYSTECTOMY- 1988. TUBAL LIGATION -1985. TONSILECTOMY. APPENDECTOMY. LEFT TENDON REPAIR - Family History Known Family History: Negative: Blood Disorder - Social History Occupation: Employed Full-time Lives: With Family Alcohol Use: Occasionally Alcohol Amount: 2 X YEAR Substance Use Type: None Smoking Status (MU): Heavy Every Day Tobacco Smoker Type: Cigarettes Amount Used/How Often: 3/4 PPD Length of Time of Smoking/Using Tobacco: since age 23 Have You Smoked in the Last Year: Yes Household Exposure Type: Cigarettes - Immunization History Most Recent Influenza Vaccination: NONE 2016 Most Recent Tetanus Shot: she is unsure if she's up to date Review of Systems Constitutional: Negative Skin: Negative Eyes: Negative ENT: Negative Respiratory: Negative Cardiovascular: Negative Gastrointestinal: Negative Genitourinary: Negative Motor: Decreased ROM - right foot Neurovascular: Negative Musculoskeletal: Arthralgia, Myalgia Neurological: Negative Psychological: Negative Is Patient Immunocompromised?: No All Other Systems Reviewed And Are Negative: Yes Physical Exam Triage Information Reviewed: Yes Appearance: Well-Appearing Vital Signs: Initial Vital Signs Temp 98.3 F 06/12/18 11:51 Pulse 57 06/12/18 11:51 Resp 16 06/12/18 11:51 BP 138/63 06/12/18 11:51 Pulse Ox 100 06/12/18 11:51 Vital Signs Reviewed: Yes Eye Exam: Normal ENT: Positive: Hearing grossly normal Dental Exam: Normal Neck exam: Normal Respiratory: Positive: No respiratory distress Cardiovascular: Positive: Bradycardia Musculoskeletal Exam: Other Musculoskeletal: Positive: Edema @ - right lateral malleolus, Other: - tenderness with palpation right mid and lateral foot and malleolus Neurological Exam: Normal Psychological Exam: Normal Skin Exam: Normal Diagnostics - Radiology No standard instances Radiology Interpretation Completed By: Radiologist - BONE DENSITY: Normal. BONES : There is no displaced fracture. JOINTS: There is no arthropathy. ALIGNMENT: There is no dislocation. SOFT TISSUES: Unremarkable. OTHER FINDINGS: None. IMPRESSION: NO ACUTE OSSEOUS INJURY. IF SYMPTOMS PERSIST, RECOMMEND REPEAT IMAGING. Lower Extremity Course/Dx - Course Course Of Treatment: I discussed with the pt the xray report and recommended that she f/u with her PCP and/or an orthopedic provider. I also discussed her pulse of 57 with her and recommended that she follow up with her PCP. Pt verbalized understanding and agreed to plan of care. - Differential Dx/Diagnosis Differential Diagnosis/HQI/PQRI: Contusion, Fracture (Closed) Provider Diagnoses: right foot contusion Discharge - Sign-Out/Discharge Documenting (check all that apply): Patient Departure - Discharge Plan Condition: Stable Disposition: HOME Patient Education Materials: Foot Contusion (ED), R.I.C.E. Treatment (ED) Referrals: Dash Reyes MD [Medical Doctor] - If Needed Kyree Torre MD [Primary Care Provider] - If Needed - Billing Disposition and Condition Condition: STABLE Disposition: Home
--- NOTE | 2018-06-12 12:28 | RAD ---
HISTORY: dropped 12 cans of cat food on foot 1 week ago, right foot pain COMPARISONS: None VIEWS: 3, Frontal, lateral, and oblique views of the right foot FINDINGS: BONE DENSITY: Normal. BONES: There is no displaced fracture. JOINTS: There is no arthropathy. ALIGNMENT: There is no dislocation. SOFT TISSUES: Unremarkable. OTHER FINDINGS: None. IMPRESSION: NO ACUTE OSSEOUS INJURY. IF SYMPTOMS PERSIST, RECOMMEND REPEAT IMAGING.
== END 2018-06-12 12:55 | disposition home or self-care (01) ==
LOC: UCCORT 11:24
DX: S90.31XA Contusion of right foot, initial encounter (principal); W20.8XXA Other cause of strike by thrown, projected or falling object, initial encounter; Y93.9 Activity, unspecified; Y92.9 Unspecified place or not applicable; F17.210 Nicotine dependence, cigarettes, uncomplicated
CPT/HCPCS: 99212; G0463

== ENCOUNTER 2019-07-21 07:30 | Inpatient (IN) | payer OTHER ==
[~2019-07-21 07:30] MED LIST changes: +Acetaminophen TAB* 325 MG PO ONE; -Buffered Lidocaine 0.9% SYRIN* 5 ML/SYR SYRINGE INTRADERM ONE; +Buffered Lidocaine 1% SYRIN* 1 ML/SYRINGE INTRADERM ONE; -Dexamethasone IV* 4 MG/ML 1 ML (4 MG) IV SLOW PU ONE; +Gabapentin CAP(*) 300 MG PO ONE; +Lactated Ringers 1000 ML Bag* 1,000 ML IV SCH
--- OUTSIDE RECORDS SUMMARY | 2019-07-21 07:40 | XMS REPORT | Continuity of Care Document ---
:1965 External Reference #:[id number] Author Name Renetta Hernandez PA Address [address] 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 Tobacco Use Start: Unknown Patient is a current cigarette 10-16/day smoker, smokes every day ETOH Use Denies alcohol use Recreational Drug Use Denies Drug Use Tobacco Use Start: Unknown Light tobacco smoker (10 or fewer cigarettes/day) Smoking Status Reviewed: 05/15/19 Light tobacco smoker (10 or fewer cigarettes/day) Allergies, Adverse Reactions, Alerts Active Allergies Reaction Severity Comments Date Bactrim makes legs ache 05/08/2019 Medications Active Medications SIG Qnty Indications Ordering Date Provider Paxil 1 by mouth every Unknown 40mg Tablets day Dexmethylphenidate HCL 1 tab by mouth Unknown 10mg everyday Tablets reference #: [id number] Omeprazole 1 by mouth every Unknown 20mg Capsules DR day Hydrochlorothiazide 1 by mouth every Unknown 12.5mg day Capsules Meloxicam 1 by mouth every Unknown 7.5mg Tablets day Montelukast Sodium 1 by mouth every Unknown 10mg Tablets day Albuterol Sulfate nebulized every Unknown (2.5mg/3ML) 4-6 hours as 0.083% Nebulizer needed Albuterol Sulfate HFA q4 as needed for Unknown 108(90Base) sob mcg/Act Aerosol Oxybutynin Chloride ER 1 by mouth three Unknown 10mg times a day Tablets ER 24HR Vital Signs Date Vital Result Comment 05/15/2019 11:05am BP Systolic 116 mmHg BP Diastolic 54 mmHg Body Temperature 97.8 F Heart Rate 76 /min O2 % BldC Oximetry 98 % 05/08/2019 2:41pm BP Systolic 102 mmHg BP Diastolic 58 mmHg Body Temperature 98.0 F Heart Rate 72 /min Height 73 inches 6'1" [place] body weight in kilograms 75 kg O2 % BldC Oximetry 97 % Encounters Type Date Location Provider Dx Diagnosis Office Visit 05/15/2019 Orthopaedic Office Renetta Hernandez, M17.12 Unilateral 11:00a PA primary osteoarthritis, left knee Office Visit 05/08/2019 Orthopaedic Office Renetta Hernandez, M25.562 Pain in left knee 2:30p PA M17.12 Unilateral primary osteoarthritis, left knee M23.8x2 Other internal derangements of left knee Office Visit 04/29/2015 12:14p Ildefonso Campbell 491.21 Bronchitis [facility] Chronic W/Acute Exacerbation Plan of Treatment 05/15/2019 - Renetta Hernandez, PAM17.12 Unilateral primary osteoarthritis, left kneeComments:Overall she is doing much better. She is transitioning from the immobilizer to a hinged knee brace. She'll gradually wean off the walker. Patient will return to the office on an as-needed basis.
--- OUTSIDE RECORDS SUMMARY | 2019-07-21 07:40 | XMS REPORT | Continuity of Care Document ---
:1965 External Reference #:[id number] Author Name Renetta Hernandez PA Address [address] [address] Care Team Providers Name Role Phone Kyree Torre MD Care Team Information Stripper Preliminary Unavailable Kyree Torre MD Primary Care Physician Unavailable Payers Date Identification Numbers Payment Provider Subscriber Policy Number: [id number] [employer] Heidi Wood PayID: [id number] [address] [place] [address] Problems Active Problems Provider Date Localized, primary [...] mouth Unknown 10mg everyday Tablets reference #: [id number] Omeprazole 1 by mouth every Unknown 20mg [...] Rate 72 /min Height 73 inches 6'1" [place] body weight in kilograms 75 kg O2 % BldC Oximetry 97 % Encounters Type Date Location Provider Dx Diagnosis Office Visit 05/08/2019 Orthopaedic Office Renetta Hernandez, M17.12 Unilateral primary 2:30p PA osteoarthritis, left knee M23.8x2 Other internal derangements of left knee Office Visit 04/29/2015 12:14p Ildefonso Campbell 491.21 Bronchitis [facility] Chronic W/Acute Exacerbation Plan of Treatment 05/08/2019 - Renetta Hernandez, PAM17.12 Unilateral primary osteoarthritis, left kneeComments:Overall I believe that this is most likely a arthritis flare with possible internal derangement. I recommended continued use of anti-inflammatory , ice, elevation and rest through the weekend. My hopewas that this calms down and goes to her baseline achy arthritis discomfort. She may gradually start to weight-bear and I would keep it protected with either crutches or a walker. Patient will returnin 1 week for recheck.M23.8x2 Other internal derangements of left knee
--- OUTSIDE RECORDS SUMMARY | 2019-07-21 07:40 | XMS REPORT | Continuity of Care Document ---
:1965 External Reference #:[id number] Author Name Rowdyterese Charlotte Care Team Providers Name Role Phone Kyree Torre MD Primary Care Physician Unavailable Payers Date Identification Numbers Payment Provider Subscriber Policy Number: [id number] [employer] Group Number: [id number] Group Name: [place] [address] PayID: [id number] Problems Active Problems Provider Date Localized, primary osteoarthritis Von Kitchen M.D. Onset: 04/13/2016 Lymphedema Eliseo Grijalva MD Onset: 12/18/2017 Pain in left lower limb Eliseo Grijalva MD Onset: 12/04/2017 Edema Eliseo Grijalva MD Onset: 12/04/2017 Family History Date Family Member(s) Observation Comments General Father has diabetes and high blood pressure Mother Alzheimer's Disease Social History Type Date Description Comments Sex Unknown Lives With Occupation Disabled Occupation Unemployed ETOH Use Rarely consumes alcohol Tobacco Use Start: Unknown Light tobacco smoker (10 or fewer cigarettes/day) Smoking Status Reviewed: 06/04/19 Light tobacco smoker (10 or fewer cigarettes/day) Exercise Type/Frequency Exercises sporadically Allergies, Adverse Reactions, Alerts Description No Known Drug Allergies Medications Active Medications SIG Qnty Indications Ordering Provider Date Knee Scooter use as needed M76.72 Hector Camilo M.D. 06/29/2017 M21.532 Paxil 40mg 1 by mouth every day Unknown Tablets Albuterol Sulfate puff every 6 hours as Unknown Powder needed Oxybutynin Chloride Take One Tablet By Mouth Unknown 5mg Tablets Twice A Day Vitamin Deficiency Injectable inject 1 milliliters every Unknown System-B12 week for 4 weeks followed 1000mcg/ML Kit by monthly injections. Hydrochlorothiazide 1 by mouth every day Unknown 12.5mg Tablets Montelukast Sodium 1 by mouth every day Unknown 10mg Tablets Methylphenidate Hydrochloride ER 1 cap by mouth in in the Unknown 27mg Tablets ER morning 24HR Omeprazole 20mg 1 by mouth every day Unknown Capsules DR Robboxicrosario 7.5mg take one tab twice daily as Unknown Tablets needed for pain, avoid other nsaids History Medications Oxycodone HCL 1-2 tabs by mouth 40tabs Hector 06/18/2017 - 5mg Tablets every 4-6 hours as Hermann Camilo 07/12/2017 needed Cipro 1 by mouth twice 14tabs Florian Wilkinson 01/17/2017 - 500mg Tablets until symptoms Hermann Hartley 07/12/2017 clear Cyclobenzaprine HCL one by mouth three 60tabs M54.17 Hector 06/27/2016 - 10mg times a day as Hermann Camilo 09/10/2016 Tablets needed spasm Gabapentin 300mg by mouth 60caps Von 05/25/2016 - 300mg Capsules nightly for nerve Hermann Kitchen 09/10/2016 pain, increase to 600mg nightly after 5 days if no improvement to sytmpoms Naproxen 1 by mouth twice a 60tabs M17.12 Von 05/05/2016 - 500mg Tablets day Hermann Kitchen 09/10/2016 Tramadol HCL 1-2 tabs by mouth 60tabs M17.12 Von 05/05/2016 - 50mg Tablets q4-6 hours as Hermann Kitchen 09/10/2016 needed pain Hydrocodone-Acetaminop 1 by mouth every Unknown - hen 4-6 hours prn. 05/05/2016 5-325mg Tablets Symbicort 2 puff twice a day Unknown - 80-4.5mcg/Act 06/03/2019 Aerosol Clotrimazole 1 po tid Unknown - Lucius 06/03/2019 Gabapentin 1 by mouth three Unknown - 300mg Capsules times a day 07/12/2017 Moxifloxacin HCL Unknown - 06/03/2019 Medications Administered in Office Medication SIG Qnty Indications Ordering Provider Date Depomedrol 40MG Von Kitchen M.D. 04/13/2016 Injection Vital Signs Date Vital Result Comment 06/04/2019 2:19pm Height 73 inches 6'1" Weight 211.00 lb BP Systolic 130 mmHg BP Diastolic 72 mmHg Respiratory Rate 16 /min Body Temperature 97.5 F Pain Level 8 BMI (Body Mass Index) 27.8 kg/m2 12/26/2017 9:39am Height 73 inches 6'1" Weight 220.00 lb Heart Rate 76 /min BP Systolic Sitting 116 mmHg BP Diastolic Sitting 64 mmHg Respiratory Rate 16 /min Pain Level 7 BMI (Body Mass Index) 29.0 kg/m2 12/18/2017 1:26pm Height 73 inches Weight 220.00 lb Heart Rate 85 /min BP Systolic 120 mmHg BP Diastolic 74 mmHg Respiratory Rate 18 /min BMI (Body Mass Index) 29.0 kg/m2 12/04/2017 11:04am Height 73 inches Weight 220.00 lb Heart Rate 85 /min BP Systolic 121 mmHg BP Diastolic 76 mmHg Respiratory Rate 18 /min BMI (Body Mass Index) 29.0 kg/m2 11/01/2017 10:50am Height 73 inches 6'1" Weight 220.00 lb BP Systolic 130 mmHg BP Diastolic 80 mmHg Respiratory Rate 17 /min Body Temperature 95.9 F Pain Level 0 BMI (Body Mass Index) 29.0 kg/m2 08/31/2017 11:00am Height 73 inches 6'1" Weight 220.00 lb Respiratory Rate 16 /min Pain Level 0 unless pressed on BMI (Body Mass Index) 29.0 kg/m2 08/15/2017 1:02pm Height 73 inches 6'1" Weight 220.00 lb Heart Rate 72 /min BP Systolic Sitting 132 mmHg BP Diastolic Sitting 76 mmHg Respiratory Rate 16 /min Body Temperature 100.6 F Pain Level 8 BMI (Body Mass Index) 29.0 kg/m2 08/03/2017 11:08am Heart Rate 66 /min BP Systolic Sitting 138 mmHg BP Diastolic Sitting 85 mmHg Body Temperature 97.0 F 07/13/2017 11:55am Heart Rate 60 /min BP Systolic Sitting 130 mmHg BP Diastolic Sitting 90 mmHg Body Temperature 97.9 F 06/28/2017 11:24am Height 73 inches 6'1" Weight 231.00 lb Heart Rate 66 /min BP Systolic 130 mmHg BP Diastolic 83 mmHg Respiratory Rate 17 /min Body Temperature 97.5 F Pain Level 7 BMI (Body Mass Index) 30.5 kg/m2 05/24/2017 10:44am Height 73 inches 6'1" Weight 231.00 lb Respiratory Rate 18 /min Body Temperature 97.0 F Pain Level 6 BMI (Body Mass Index) 30.5 kg/m2 04/17/2017 8:30am Height 73 inches 6'1" Weight 231.00 lb Heart Rate 76 /min BP Systolic 118 mmHg BP Diastolic 83 mmHg Body Temperature 98.2 F Pain Level 3 BMI (Body Mass Index) 30.5 kg/m2 04/10/2017 9:26am Height 73 inches 6'1" Weight 231.00 lb BP Systolic 125 mmHg BP Diastolic 88 mmHg Body Temperature 98.0 F Pain Level 5 BMI (Body Mass Index) 30.5 kg/m2 01/17/2017 10:32am Height 73 inches 6'1" Weight 220.00 lb Heart Rate 60 /min BP Systolic Sitting 118 mmHg BP Diastolic Sitting 80 mmHg Respiratory Rate 14 /min BMI (Body Mass Index) 29.0 kg/m2 11/17/2016 12:58pm Height 73 inches 6'1" Weight 220.00 lb Heart Rate 80 /min BP Systolic Sitting 122 mmHg BP Diastolic Sitting 86 mmHg Respiratory Rate 14 /min BMI (Body Mass Index) 29.0 kg/m2 10/10/2016 9:08am Height 73 inches 6'1" Weight 229.00 lb Heart Rate 76 /min BP Systolic 120 mmHg BP Diastolic 80 mmHg BMI (Body Mass Index) 30.2 kg/m2 07/11/2016 10:33am Height 73 inches 6'1" Weight 230.00 lb BP Systolic Sitting 122 mmHg BP Diastolic Sitting 82 mmHg Pain Level 6 04/07 left foot BMI (Body Mass Index) 30.3 kg/m2 06/29/2016 10:16am Height 73 inches 6'1" Weight 230.00 lb Pain Level 6 BMI (Body Mass Index) 30.3 kg/m2 06/27/2016 9:44am Height 73 inches 6'1" Weight 230.00 lb Heart Rate 80 /min BP Systolic 134 mmHg BP Diastolic 68 mmHg BMI (Body Mass Index) 30.3 kg/m2 05/25/2016 8:03am Height 73 inches 6'1" Weight 230.00 lb Pain Level 6 BMI (Body Mass Index) 30.3 kg/m2 05/18/2016 1:01pm Height 73 inches 6'1" Weight 230.00 lb Pain Level 8 BMI (Body Mass Index) 30.3 kg/m2 05/05/2016 1:30pm Height 73 inches 6'1" Weight 130.00 lb Pain Level 6 BMI (Body Mass Index) 17.1 kg/m2 04/13/2016 9:25am Height 73 inches 6'1" Weight 130.00 lb Heart Rate 77 /min BP Systolic 126 mmHg BP Diastolic 78 mmHg Pain Level 7 BMI (Body Mass Index) 17.1 kg/m2 Results Test Date Facility Test Result H/L Range Note Vitamin B12 And 11/17/2016 [facility] Vitamin B12 171 pg/mL Low 180-9[address] [place] [address] [phone] Folic Acid (Folate) 9.26 ng/mL Normal >3.99 Protein 11/17/2016 [facility] Total 6.9 Normal 6.3 - Electrophoresis 101 [facility] Protein(Pep) g/dL 7.9 [place] [address] [phone] Albumin 3.6 g/dL Normal 3.4-4.7 Alpha-1 Globulin 0.3 g/dL Normal 0.1-0.3 Alpha-2 Globulin 1.1 g/dL Abnormal 0.6-1.0 Beta Globulin 1.1 g/dL Normal 0.7-1.2 Gamma Globulin 0.9 g/dL Normal 0.6-1.6 Albumin/Globulin Ratio 1.11 Normal Impression See Comment Normal 2 Laboratory test 11/17/2016 [facility] Lyme Disease Negative Normal Negative 3 finding [address] [facility] [address] [phone] TSH (Thyroid Stim Horm) 2.12 mcIU/mL Normal 0.34-5.60 Hemoglobin A1c (Glyco HGB) 5.0 % Normal Less than 6.0 4 1 Normal Range 180 to 914 Indeterminate Range 145 to 180 Deficient Range <145 2 RESULT: No apparent monoclonal protein on serum electrophoresis. Test Performed by: [facility] [address] [place] [address] Physicist Nuclear: Stefan Santana II, M.D., Ph.D. 3 Serologic response to B. burgdorferi infection is not detected, but cannot rule out early infection during which low or undetectable antibody levels to B. burgdorferi may be present. If clinically indicated, a new serum specimen should be submitted in 7-14 days. Test Performed by: [address] [address] Physicist Nuclear: Stefan Santana II, M.D., Ph.D. 4 Therapeutic target for the treatment of diabetes Mellitus patients is <7% HBA1C, and in selective patients <6.0%.Please refer to [place] [employer] Diabetic care guidelines for further information. Procedures Date Code Description Status 12/26/2017 34268 Rad Exam; Foot Limited Completed 08/15/2017 07999 Rad Exam; Foot Comp Completed 06/28/2017 67995 Short Leg Cast Completed 06/18/2017 74688 Repair Flexor Tendon Leg Secondary W/Wo Graft Completed 06/18/2017 09359 Repair Flexor Tendon Foot W/O Free Graft Completed 06/18/2017 28881 Correction Hammertoe Completed 06/18/2017 56451 Correction Hammertoe Completed 06/18/2017 86347 Correction Hammertoe Completed 06/18/2017 29320 Correction Hammertoe Completed 06/18/2017 16257 Correction Hammertoe Completed 06/18/2017 39711 Correction Hammertoe Completed 06/18/2017 62674 Correction Hammertoe Completed 06/18/2017 27192 Correction Hammertoe Completed 06/18/2017 41269 Arthrodesis Great Toe IP JT Completed 06/18/2017 09646 Arthrodesis Great Toe IP JT Completed 03/16/2017 93899 Treadmill Interp/Report Only Completed 03/16/2017 19190 Stress Test Supervsn W/Out I/R Completed 03/15/2017 10183 ECHO Transthorasic Realtime 2D W Doppler & Color Flow Hosp Completed 03/14/2017 51261 EEG Recording Awake & Drowsy Completed 11/17/2016 29668 Nerve Conduction 07-08 Studies Completed 11/17/2016 28457 Needle Electromyography Complete, Five Or More Muscles Completed Studied 11/17/2016 48905 Needle Electromyography Each Extremity W/Related Completed Paraspinal Areas 06/27/2016 14549 Rad Exam; Foot Comp Completed 04/13/2016 78146 Inject/Drain Joint/Bursa Major W/O US Completed 03/15/2013 59921 Treadmill Interp/Report Only Completed 03/15/2013 69098 Stress Test Supervsn W/Out I/R Completed Encounters Type Date Location Provider Dx Diagnosis Office Visit 12/26/2017 Orthopedic Hector Camilo, S92.515A Nondisp fx of 9:45a [facility] Customer Service Clerk AT M.Sudhakar proximal phalanx [place] of left lesser toe(s), init M79.672 Pain in left foot G57.92 Unspecified mononeuropathy of left lower limb G57.91 Unspecified mononeuropathy of right lower limb W22.09xA Striking against other stationary object, initial encounter Office Visit 11/01/2017 10:45a Orthopedic Hector Bardales.72 [facility] Of Hermann Camilo tendinitis, left C.M.A. 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 tendbev, left leg Office Visit 04/10/2017 9:15a Orthopedic Hector aCo [facility] Of Dionicio Camilo M.D. tendinilauryn, left leg Office Visit 03/15/2017 12:55p [facility] Wilfred R53.1 Weakness Assoc,Juvencio Brown M.D. R07.9 Chest pain, unspecified J44.9 Chronic obstructive pulmonary disease, unspecified F32.9 Major depressive disorder, single episode, unspecified Office Visit 03/14/2017 [facility] Florian Wilkinson R20.0 Anesthesia of 1:44p Rigoberto Hartley M.D. skin R41.0 Disorientation, unspecified Office Visit 03/14/2017 12:54p [facility] Yu Sawant R53.1 Weakness Assoc,clyde Vivar, ANIMAL CARE ASSISTANT Hospitalists R07.9 Chest pain, unspecified J44.9 Chronic obstructive pulmonary disease, unspecified F32.9 Major depressive disorder, single episode, unspecified Office Visit 01/17/2017 10:45a [facility] Florian Wilkinson E53.8 Deficiency of Services Of Santosh Hartley M.D. other specified B group vitamins G62.9 Polyneuropathy, unspecified G25.0 Essential tremor Office Visit 10/10/2016 9:00a [facility] Florian Wilkinson R20.2 Paresthesia of Services Of Santosh Hartley M.D. skin R25.1 Tremor, unspecified Office Visit 07/11/2016 10:40a Orthopedic Hector M21.532 Acquired Services Of Santosh Camilo M.D. clawfoot, left AT [place] foot M21.531 Acquired clawfoot, right foot Office Visit 06/29/2016 Orthopedic Vanessa M54.17 Radiculopathy, 10:00a Services Of LOLLY Bhagat lumbosacral region C.M.A. M17.12 Unilateral primary osteoarthritis, left knee Office Visit 06/27/2016 Orthopedic Hector M54.17 Radiculopathy, 10:40a Services Of Santosh Camilo M.D. 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 M17.12 Unilateral primary osteoarthritis, left knee Office 05/18/2016 Orthopedic Von M17.12 Unilateral primary Visit 1:00p Services Of Hermann Kitchen osteoarthritis, left C.M.A. knee Office 05/05/2016 Orthopedic Vanessa Bautista7.12 Unilateral primary Visit 1:40p Services Of LOLLY Bhagat osteoarthritis, left C.M.A. knee Office 04/13/2016 Orthopedic Von M17.12 Unilateral primary Visit 9:30a Services Of Hermann Kitchen osteoarthritis, left C.M.A. knee Office 03/15/2013 [facility] 786.50 Pain Chest Unspec Visit 3:59p clyde Johnson Hospitalists Hermann Office 03/15/2013 [facility] S. 794.31 Electrocardiogram Visit 3:12p Anamaria (ECG) (EKG) Abnormal Hermann 786.50 Pain Chest Unspec 786.05 Shortness Of Breath 416.9 Pulmonary Heart Disease Unspec Chronic Plan of Treatment 06/04/2019 - Von Kitchen M.D.M17.12 Unilateral primary osteoarthritis, left kneeFollow up:Follow up: Will call to Schedule Surgery, H&P 30 days prior
--- OUTSIDE RECORDS SUMMARY | 2019-07-21 07:40 | XMS REPORT | Summary of Care ---
:1965 Author Organization [facility] Address [address] [place] [address] Care Team Providers Name Role Phone Kyree Torre MD Primary Care Provider Reason for Visit Reason Comments Other pt presents for pre op clearance for total left knee replacement. Encounter Details Date Type Department Care Team Description 07/04/2019 Office Visit [facility] Kyree Torre MD Pre-op evaluation (Primary Dx); Practice [address] Arthralgia of left knee; [address] [facility] [place] [address] Essential hypertension; [place] [address] Primary narcolepsy without cataplexy; [phone] Smoking Allergies Active Allergy Reactions Severity Noted Date Comments Sulfamethoxazole W/Trimethoprim Other 05/08/2019 Makes legs ache Trimethoprim Unknown Reaction 05/08/2019 documented as of this encounter (statuses as of 07/04/2019) Medications Medication Sig Dispensed Refills Start End Status Date Date IBUPROFEN 200 PO Take 1,200 mg 0 Active by mouth TWICE DAILY. albuterol HFA Take 2 Puffs 1 Inhaler 2 10/01/20 Active (VENTOLIN) 108 (90 by inhalation 15 BASE) MCG/ACT EVERY FOUR Inhalation Aero Soln HOURS NEEDED (wheezing). clonazePAM (KLONOPIN) 1 Take 1 Tab by 30 Tab 0 03/14/20 Active MG Oral TabIndications: mouth TWO 17 PTSD (post-traumatic TIMES DAILY stress disorder) NEEDED (anxiety). Max Daily Amount: 2 mg. methylphenidate Take 10 mg by 0 Active (RITALIN) 10 MG Oral mouth DAILY. Tab Syringe Luer Lock (B-D USE 10 Each 0 09/10/20 Active 3CC LUER-TAMMY SYR DIRECTED 18 25GX1/2") 25G X 1-1/2" 3 ML Does not apply Misc hydrochlorothiazide Take 1 Cap by 30 Cap 5 04/07/20 Active (HCTZ, ORETIC) 12.5 MG mouth DAILY. 19 Oral Cap montelukast (SINGULAIR) Take 1 Tab by 30 Tab 5 04/07/20 Active 10 MG Oral Tab mouth DAILY. 19 albuterol (PROVENTIL, NEEDED for 0 06/18/20 Active VENTOLIN) (2.5 MG/3ML) DYSPNEA 13 0.083% Inhalation Nebu Soln methylphenidate Take 27 mg by 0 Active (CONCERTA) 27 MG Oral mouth DAILY. TABLET SR 24 HR meloxicam (MOBIC) 7.5 Take 1 Tab by 30 Tab 2 07/04/20 Active MG Oral Tab mouth DAILY. 19 paroxetine (PAXIL) 40 Take 40 mg by 30 Tab 5 07/04/20 Active MG Oral Tab mouth DAILY. 19 oxybutynin (DITROPAN) 5 Take 1 Tab by 90 Tab 5 07/04/20 Active MG Oral Tab mouth THREE 19 TIMES DAILY. Omeprazole delayed rel Take 20 mg by 30 Cap 6 07/04/20 Active cap 20 MG Oral CAPSULE mouth DAILY. 19 DELAYED RELEASE Cyanocobalamin (B-12) by Injection 0 Active 1000 MCG/ML Injection route Kit DIRECTED. qo month SYMBICORT 160-4.5 INHALE TWO 1 Inhaler 5 02/23/20 Discontinued MCG/ACT Inhalation PUFFS BY MOUTH 16 019 Aerosol TWICE A DAY Omeprazole delayed rel Take 20 mg by 30 Cap 6 12/31/19 Discontinued cap 20 MG Oral CAPSULE mouth DAILY. 19 019 (Reorder) DELAYED RELEASE meloxicam (MOBIC) 7.5 Take 1 Tab by 30 Tab 2 04/07/20 Discontinued MG Oral Tab mouth DAILY. 19 019 (Reorder) paroxetine (PAXIL) 40 TAKE ONE 30 Tab 1 05/12/20 Discontinued MG Oral Tab TABLET BY 19 019 (Reorder) MOUTH ONCE DAILY paroxetine (PAXIL) 40 Take by 0 Discontinued MG Oral Tab mouth. 019 hydrochlorothiazide ONCE DAILY 0 Discontinued (MICROZIDE) 12.5 MG 019 Oral Cap meloxicam (MOBIC) 7.5 ONCE DAILY 0 Discontinued MG Oral Tab 019 Dexmethylphenidate HCl Take by 0 Discontinued 10 MG Oral Tab mouth. 019 oxybutynin (DITROPAN) 5 TAKE ONE 90 Tab 0 06/10/20 Discontinued MG Oral Tab TABLET BY 19 019 (Reorder) MOUTH THREE TIMES A DAY documented as of this encounter (statuses as of 07/04/2019) Active Problems Problem Noted Date Ankle sprain 06/02/2019 Chronic obstructive bronchitis 06/02/2019 DVT (deep venous thrombosis) 06/02/2019 Edema 06/02/2019 Muscle spasm of back 06/02/2019 Low back pain 06/02/2019 Osteoarthritis 06/02/2019 Depression 06/02/2019 Arthritis 06/02/2019 Cervical spondylosis without myelopathy 10/14/2018 Radicular pain in left arm 08/23/2018 Overview: Added automatically from request for surgery [id number] Neck pain 08/08/2018 B12 deficiency 03/22/2018 Traumatic tear of medial meniscus of left knee 09/19/2015 Arthralgia of left knee 09/14/2015 Chronic low back pain 01/01/2013 Cervicalgia 01/01/2013 Depression with anxiety 01/01/2013 COPD, moderate 11/29/2012 Smoking 11/29/2012 PTSD (post-traumatic stress disorder) 11/29/2012 Overview: Daughter murdered 2012 Diagnosed in [place] - continued on Paxil and klonopin Migraines 11/29/2012 Narcolepsy 11/29/2012 Overview: On ritalin documented as of this encounter (statuses as of 07/04/2019) Resolved Problems Problem Noted Date Resolved Date Anoxia 06/02/2019 07/04/2019 documented as of this encounter (statuses as of 07/04/2019) Immunizations Name Administration Dates Next Due Vitamin B12 (1,000 mcg) 12/04/2016, 11/27/2016 documented as of this encounter Social History Tobacco Use Types Packs/Day Years Used Date Current Some Day Smoker Cigarettes 0.5 25 Smokeless Tobacco: Never Used Tobacco Cessation: Ready to Quit: No; Counseling Given: Yes Comments: she is working on it. using Car[employer]umerg. Alcohol Use Drinks/Week oz/Week Comments Yes 0 Standard drinks or equivalent 0.0 rare Sex Assigned at Date Recorded Not on file Job Start Date Occupation Industry Not on file Not on file Not on file Travel History Travel Start Travel End No recent travel history available. documented as of this encounter Last Filed Vital Signs Vital Sign Reading Time Taken Comments Blood Pressure 108/68 07/04/2019 10:06 AM EDT Pulse 71 07/04/2019 10:06 AM EDT Temperature - - Respiratory Rate - - Oxygen Saturation 96% 07/04/2019 10:06 AM EDT Inhaled Oxygen Concentration - - Weight 95.5 kg (210 lb 9.6 oz) 07/04/2019 10:06 AM EDT Height 185.4 cm (6' 1") 07/04/2019 10:06 AM EDT Body Mass Index 27.79 07/04/2019 10:06 AM EDT documented in this encounter Patient Instructions Patient InstructionsKKyree arellano MD - 07/04/2019 10:00 AM EDTSkip the HCTZ the day of the surgery and also the stimulants Also stop the meloxicam 5 days before documented in this encounter Progress Notes Kyree Torre MD - 07/04/2019 10:00 AM EDT PATIENT: Heidi Wood : 1965 DATE OF SERVICE: 07/04/2019 Subjective SUBJECTIVE: Heidi Wood is a 53-y.o. female who presents to the office today for a preoperative consultation at the request of Dr Kitchen, who will perform a left knee replacement on 07/21/19. Patient complains of knee pain for years. Had arthroscopic surgery 3 years ago , nsaids stopped helping and now time for replacement: . Patient denies cardiac symptoms: chest pain, dyspnea, palpitations, near- syncope, orthopnea, paroxysmal nocturnal dyspnea, claudication. Past history of pulmonary embolism/deep vein thrombosis: ?. There is a history of bleeding complications: no Past history of anesthetic problem: Only issues coming out of anesthesia takes a long time Exercise capacity: Can you walk 2 blocks on level ground, or carry 2 bags of groceries up 2 flights of stairs? No due to pain in the knee Count the number of risk factors in the revised Allen cardiac risk index. ( RCRI): 0 High risk procedure: eg vascular surgery, any open intraperitoneal or intrathoracic 0 History of ischemic heart disease (history of MS or a positive exercise test , current complaint of chest pain considered to be secondary to myocardial ischemia, use of nitrate therapy, or ECG with pathological Q waves; do not count prior coronary revascularization procedure unless one of the other criteria for ischemic heart disease is present) 0 Hx of CHF, either systolic or diastolic 0 History of cerebrovascular disease (TIA or Stroke) 0 Diabetes mellitus requiring treatment with insulin 0 Preoperative serum creatinine >2.0 mg/dl The risk of cardiac , nonfatal myocardial infarction, and nonfatal cardiac arrest according to the number of above risk predictors is estimated to be: No risk factors - 0.4 percent (95% CI: 0.1 - 0.8) Screening for sleep apnea: She not have Chris but does have narcolepsy Past Medical History: Diagnosis Date Asthma B12 deficiency Breast mass lt breast in the past Cervicalgia with injection Chronic low back pain COPD (chronic obstructive pulmonary disease) ([facility]) Full dentures Migraines Narcolepsy with cataplexy and hypersomnia Osteoarthritis PTSD (post-traumatic stress disorder) depress anxiety-- dtr murdered PVD (peripheral vascular disease) ([facility]) varicose veins Tobacco user Family History Problem Relation Age of Onset Breast Cancer Maternal Grandmother Breast Cancer Maternal Aunt Current Outpatient Medications Medication Sig albuterol (PROVENTIL, VENTOLIN) (2.5 MG/3ML) 0.083% Inhalation Nebu Soln NEEDED for DYSPNEA albuterol HFA (VENTOLIN) 108 (90 BASE) MCG/ACT Inhalation Aero Soln Take 2 Puffs by inhalation EVERY FOUR HOURS NEEDED (wheezing). clonazePAM (KLONOPIN) 1 MG Oral Tab Take 1 Tab by mouth TWO TIMES DAILY NEEDED (anxiety). Max Daily Amount: 2 mg. Cyanocobalamin (B-12) 1000 MCG/ML Injection Kit by Injection route DIRECTED. qo month hydrochlorothiazide (HCTZ, ORETIC) 12.5 MG Oral Cap Take 1 Cap by mouth DAILY. IBUPROFEN 200 PO Take 1,200 mg by mouth TWICE DAILY. meloxicam (MOBIC) 7.5 MG Oral Tab Take 1 Tab by mouth DAILY. methylphenidate (CONCERTA) 27 MG Oral TABLET SR 24 HR Take 27 mg by mouth DAILY. methylphenidate (RITALIN) 10 MG Oral Tab Take 10 mg by mouth DAILY. montelukast (SINGULAIR) 10 MG Oral Tab Take 1 Tab by mouth DAILY. Omeprazole delayed rel cap 20 MG Oral CAPSULE DELAYED RELEASE Take 20 mg by mouth DAILY. oxybutynin (DITROPAN) 5 MG Oral Tab TAKE ONE TABLET BY MOUTH THREE TIMES A DAY paroxetine (PAXIL) 40 MG Oral Tab TAKE ONE TABLET BY MOUTH ONCE DAILY Syringe Luer Lock (B-D 3CC LUER-TAMMY SYR 25GX1/2") 25G X 1-1/2" 3 ML Does not apply Misc USE DIRECTED No current facility-administered medications for this visit. Allergies Allergen Reactions Sulfamethoxazole W/Trimethoprim Other Makes legs ache Trimethoprim Unknown Reaction Social History Socioeconomic History Marital status: Spouse name: Not on file Number of children: Not on file Years of education: Not on file Highest education level: Not on file Occupational History Not on file Social Needs Financial resource strain: Not on file Food insecurity: Worry: Not on file Inability: Not on file Transportation needs: Medical: Not on file Non-medical: Not on file Tobacco Use Smoking status: Current Some Day Smoker Packs/day: 0.50 Years: 25.00 Pack years: 12.50 Types: Cigarettes Smokeless tobacco: Never Used Tobacco comment: she is working on it. using Veeker. Substance and Sexual Activity Alcohol use: Yes Alcohol/week: 0.0 standard drinks Comment: rare Drug use: No Sexual activity: Not Currently Lifestyle Physical activity: Days per week: Not on file Minutes per session: Not on file Stress: Not on file Relationships Social connections: Talks on phone: Not on file Gets together: Not on file Attends baptist service: Not on file Active member of club or organization: Not on file Attends meetings of clubs or organizations: Not on file Relationship status: Not on file Intimate partner violence: Fear of current or ex partner: Not on file Emotionally abused: Not on file Physically abused: Not on file Forced sexual activity: Not on file Other Topics Concern Back Care Not Asked Bike Helmet Not Asked Blood Transfusions Not Asked Caffeine Concern Not Asked Exercise Not Asked Hobby Hazards Not Asked International Travel Not Asked Service Not Asked Occupational Exposure Not Asked Seat Belt Not Asked Self-Exams Not Asked Sleep Concern Not Asked Special Diet Not Asked Stress Concern Not Asked Weight Concern Not Asked Social History Narrative Not on file REVIEW OF SYSTEMS: CONSTITUTIONAL: Always tired . EARS, NOSE, MOUTH, THROAT and FACE: No URI . RESPIRATORY: Has not used inhalers but she feels singulair helps . CARDIOVASCULAR: Has had CP but PPI helps . . GENITOURINARY: She has a mixed incontinence so the ditropan helps only half. INTEGUMENT/BREAST: Not due for mammo till july . /LYMPHATIC: Just left leg swells . MUSCULOSKELETAL: Besides knee ache other joints ache, back, hip region and neck . Gabapentin used to help but she stopped it , not use tramadol NEUROLOGICAL: Migraines whole life 1-2 a month , uses motrin . B12 she takes q 60 days BEHAVIORAL/PSYCH: Rare klonopin use . ENDOCRINE: Not on thyroid med . The patient has dentures: Yes Objective OBJECTIVE: BP 108/68 (BP Location: Right arm, Patient Position: Sitting) | Pulse 71 | Ht 6' 1" (1.854 m) | Wt 210 lb 9.6 oz (95.5 kg) | SpO2 96% | BMI 27.79 kg/m Exam is stable no apparent distress, eyes clear, ears normal, oral-moist, no suspicious lesions. Neck supple, without masses. Heart regular without murmur. Lungs clear. Abdomen soft non-tender no masses. Extremity no clubbing cyanosis or edema. Brace on the knee and she walks very slowly Neuro -no focal deficits Skin no suspicious lesions. Dress and hygiene good Good eye contact Thoughts and speech normal Affect Appropriate Mood normal EKG incomplete RBBB has been seen before , ASSESSMENT: No contraindications to planned surgery 1. Pre-op evaluation 2. Arthralgia of left knee 3. Essential hypertension stable but hold diuretic for surgery 4. Primary narcolepsy without cataplexy 5. Smoking no COPD currently but at risk 6 Patient requires perioperative deep vein thrombosis prophylaxis: Per protocol . 7. Proceed with surgery as planned. No food or liquids the morning of surgery. Call surgeon if develop respiratory illness, fever, or other illness. Written preoperative instructions given. Patient Instructions Skip the HCTZ the day of the surgery and also the stimulants Also stop the meloxicam 5 days before . Author: Kyree Torre MD 07/04/2019 10:49 documented in this encounter Plan of Treatment Name Type Priority Associated Diagnoses Order Schedule AMBULATORY 12 LEAD EKG EKG Routine Pre-op evaluation Ordered: 07/04/2019 (GLOBAL) Health Maintenance Due Date Last Done Comments PNEUMOCOCCAL 0-64 YRS (1 of 1 1969 - PPSV23) LIPID DISORDER SCREENING 1981 ZOSTER IMMUNIZATION SERIES (1 2013 of 2) DEPRESSION SCREENING 02/19/2019 02/19/2018, 02/19/2018 DIABETES SCREENING 05/20/2019 05/20/2018, 08/15/2016 INFLUENZA VACCINE (#1) 2019 COLONOSCOPY SCREENING 08/02/2025 08/02/2015, 08/02/2015 HPV IMMUNIZATION SERIES Aged Out No longer eligible based on patient's age to complete this topic MENINGOCOCCAL VACCINE IMM Aged Out No longer eligible based on patient's age to complete this topic documented as of this encounter Goals Goal Patient Goal Associated Recent Patient-Stated? Author Type Problems Progress Blood Pressure Blood Pressure 108/68 No Yelitza, < 140/90 (07/04/2019 MD Kyree 10:06 AM EDT) Note: This is an individualized treatment (blood pressure) goal for Heidi Wood : Displayed above (on the left) is your goal for blood pressure control. Your most recent blood pressure is also shown above, on the right. You should try to achieve blood pressures that are lower than your goal listed above (on the left). Smoking Cessation COPD No Kyree Torre MD Note: This is an individualized treatment (COPD) goal for Heidi Wood: Quit smoking immediately! Your provider has information and resources that may help you to quit. Depression screen (PHQ-9) Depression 17 (02/19/2018 2:06 PM No Kyree Torre MD total score < 5 EDT) Note: This is an individualized treatment (depression) goal for Heidi Wood: Displayed above is your goal for a depression screening (PHQ-9) score that would indicate good control of your depression. Keep immunizations current Lifestyle Kyree Starkey MD Note: This is an individualized lifestyle goal for Heidi Wood: Please be sure to keep up-to-date on recommended immunizations. For example, this would include a yearly influenza vaccine. Immunization status can be seen by looking at the Health Maintenance sections of your e[facility], Plan of Care, and any After Visit Summaries. Keep a regular sleep schedule Lifestyle No Kyree Torre MD Note: This is an individualized lifestyle goal for Heidi Wood: Please maintain a regular sleep schedule. This may help with some symptoms of depression. Take all prescribed medications as directed Self-management No Kyree Torre MD Note: This is an individualized self-management goal for Heidi Wood: Please take all prescribed medications as directed. 1. Do not skip doses. If you cannot afford your medications, talk with your doctor. 2. Use a pill reminder system such as a pill box if needed. Your pharmacist can help you with this. 3. Contact your Pharmacy 5 days before your medication runs out. If you cannot take your medications for any reasons, talk with your doctor. 4. Please bring all of your medication bottles and inhalers (or a list of all your medications/inhalers) with you to every visit. Potential barriers to meeting all of your care plan goals will continue to be addressed on an ongoing basis. documented as of this encounter Procedures Procedure Name Priority Date/Time Associated Diagnosis Comments VITAMIN B12 / FOLATE Routine 07/04/2019 11:13 Results for this AM EDT procedure are in the results section. THYROID STIMULATING Routine 07/04/2019 11:13 Primary narcolepsy Results for this HORMONE AM EDT without cataplexy procedure are in the results section. LIPID PROFILE Routine 07/04/2019 11:13 Essential Results for this AM EDT hypertension procedure are in the results section. BASIC METABOLIC Routine 07/04/2019 11:13 Essential Results for this PANEL AM EDT hypertension procedure are in the results section. documented in this encounter Results THYROID STIMULATING HORMONE (07/04/2019 11:13 AM EDT) TSH 1.93 0.47 - 4.68 uIu/ml [facility] Specimen Blood Performing Organization Address City/State/Zipcode Phone Number [facility] [address] [place] [address] VITAMIN B12 / FOLATE (07/04/2019 11:13 AM EDT) Vitamin B12 309 239 - 931 pg/ml [facility] Folate 4.8 2.8 - 20.0 ng/ml [facility] Specimen Blood Performing Organization Address [facility] Phone Number [facility] [address] [place] [address] BASIC METABOLIC PANEL (07/04/2019 11:13 AM EDT) Glucose 107 (H) 70 - 99 mg/dl [facility] BUN 18 (H) 7 - 17 mg/dl [facility] Creatinine 0.8 0.7 - 1.2 mg/dl [facility] Sodium 140 134 - 145 mmol/L [facility] Potassium 3.7 3.5 - 5.1 mmol/L [facility] Chloride 106 98 - 107 mmol/L [facility] CO2 27 22 - 30 mmol/L [facility] Calcium 9.2 8.3 - 10.1 mg/dl [facility] eGFR >60 See Interpretation [facility] Comment: Below ml/min/1.73ml [facility] Estimated GFR Interpretation: Above 60ml/min/1.73m2 = Normal Renal Function 30-59 ml/min/1.73m2 = Stage 3 Chronic Kidney Disease 15-29 ml/min/1.73m2 = Stage 4 Chronic Kidney Disease Less than 15 ml/min/1.73m2 = Stage 5 Chronic Kidney Disease The GFR value is calculated using the Modification of Diet in Renal Disease ( MDRD) Study Equation which can be found at: https://www.kidney.org/content/jvih-ejzhi-opngyzry BUN/Creatinine 23 (H) 6 - 22 RATIO [facility] Anion Gap 7 3 - 11 mmol/L [facility] Specimen Blood Performing Organization Address [facility] Phone Number [facility] [address] [place] [address] [phone] LIPID PROFILE (07/04/2019 11:13 AM EDT) Cholesterol 179 <200 mg/dl [facility] HDL Cholesterol 52 >50 mg/dl [facility] Triglycerides 109 <150 mg/dl [facility] LDL Cholesterol 105 (H) <100 MG/DL [facility] Cholesterol / HDL Ratio 3.4 RATIO [facility] LDL / HDL Ratio 2.0 [facility] Non-HDL Cholesterol 127 0 - 130 MG/DL [facility] Specimen Blood Performing Organization Address City/State/Zipcode Phone Number [facility] [address] [place] [address] documented in this encounter Visit Diagnoses Diagnosis Pre-op evaluation - Primary Preoperative examination, unspecified Arthralgia of left knee Essential hypertension Unspecified essential hypertension Primary narcolepsy without cataplexy Smoking Tobacco use disorder documented in this encounter documented as of this encounter
--- OUTSIDE RECORDS SUMMARY | 2019-07-21 07:40 | XMS REPORT | Continuity of Care Document ---
:1965 External Reference #:[id number] Author Name Von Kitchen M.D. (transmitted by agent of provider Kathy Schaefer) Address [address] [place] [address] Care Team Providers Name Role Phone Kyree Torre MD - Family Medicine Care Team Information Thinner Sprayer Problems Active Problems Provider Date Localized, primary osteoarthritis Von Kitchen M.D. Onset: 04/13/2016 Lymphedema Eliseo Grijalva MD Onset: 12/18/2017 Pain in left lower limb Eliseo Grijalva MD Onset: 12/04/2017 Edema Eliseo Grijalva MD Onset: 12/04/2017 Social History Type Date Description Comments Sex Unknown ETOH Use Rarely consumes alcohol Tobacco Use [...] 1 by mouth every day Unknown Capsules Meloxicam 7.5mg take one tab twice daily as Unknown Tablets needed for pain, avoid other nsaids Medications Administered in Office Medication SIG Qnty Indications Ordering Provider Date Depomedrol 40MG Von Kitchen M.D. 04/13/2016 Injection Immunizations Description No Information Available Vital Signs Date Vital Result Comment 06/04/2019 [...] 7 BMI (Body Mass Index) 29.0 kg/m2 Results Description No Information Available Procedures Description No Information Available Medical Devices Description No Information Available Encounters Type Date Location Provider Dx Diagnosis Office Visit 06/04/2019 [facility]allanes Unilateral primary [facility], left knee Assessments Date Code Description Provider 06/12/2019 M17.12 Unilateral primary osteoarthritis, left knee Von Kitchen M.D. 06/11/2019 M17.12 Unilateral primary osteoarthritis, left knee Von Kitchen M.D. 06/04/2019 M17.12 Unilateral primary osteoarthritis, left knee Von Kitchen M.D. Plan of Treatment Future Appointment(s):07/21/2019 10:00 am - [place] [facility]/21/2019 10:00 am - Von Kitchen M.D. at [facility]/16/2019 9:00 am - Von Kitchen M.D. [facility]/04/2019 - Von Kitchen M.D.M17.12 Unilateral primary osteoarthritis, left kneeFollow up:Follow up: Will call to Schedule Surgery, H &P 30 days prior Functional Status Description No Information Available Mental Status Description No Information Available Referrals Description No Information Available
--- OUTSIDE RECORDS SUMMARY | 2019-07-21 07:40 | XMS REPORT | Continuity of Care Document ---
:1965 External Reference #:[id number] Author Name Von Kitchen M.D. (transmitted by agent of provider Nirmala Gaytan) Address [address] [place] [address] Care Team Providers Name Role Phone Kyree Torre MD - Family Medicine Care Team Information Router Operator Pin [phone] Problems Active Problems Provider Date Localized, primary osteoarthritis Von Kitchen M.D. Onset: 04/13/2016 Lymphedema Eliseo Grijalva MD Onset: 12/18/2017 Pain in left lower limb Eliseo Grijalva MD Onset: 12/04/2017 Edema Eliseo Grijalva MD Onset: 12/04/2017 Social History Type Date Description Comments Sex Unknown ETOH Use Rarely consumes alcohol Tobacco Use Start: Unknown Light tobacco smoker (10 or fewer cigarettes/day) Smoking Status Reviewed: 07/16/19 Light tobacco smoker (10 or fewer cigarettes/day) Exercise Type/Frequency Exercises sporadically Allergies, Adverse Reactions, Alerts Description No Known Drug Allergies Medications Active Medications SIG Qnty Indications Ordering Provider Date Macrobid one tablet twice 10caps Von Kitchen, 07/14/2019 100mg Capsules daily x 5 days M.D. Knee Scooter use as needed M76.72 Hector Camilo, 06/29/2017 M.DBethany M21.532 Paxil 40mg 1 by mouth every [...] by mouth every day Unknown Capsules DR Meloxicam 7.5mg take one tab twice daily as Unknown Tablets needed for pain, avoid other nsaids Medications Administered in Office Medication SIG Qnty Indications Ordering Provider Date Depomedrol 40MG Von Kitchen M.D. 04/13/2016 Injection Immunizations Description No Information Available Vital Signs Date Vital Result Comment 07/16/2019 8:54am Height 73 inches 6'1" Weight 206.00 lb Heart Rate 81 /min BP Systolic 130 mmHg BP Diastolic 78 mmHg Body Temperature 97.0 F Pain Level 8 BMI (Body Mass Index) 27.2 kg/m2 06/04/2019 2:19pm Height 73 inches 6'1" Weight 211.00 lb BP Systolic 130 mmHg BP Diastolic 72 mmHg Respiratory Rate 16 /min Body Temperature 97.5 F Pain Level 8 BMI (Body Mass Index) 27.8 kg/m2 Results Test Date Facility Test Result H/L Range Note Urinalysis Profile 07/11/2019 [facility] Urine Color Yellow [address] [place] [address] [phone] Urine Appearance Cloudy Urine Specific [place] 1.018 Normal 1.010-1.030 Urine pH 6.0 Normal 5-9 Urine Urobilinogen Negative Negative Urine Ketones Negative Negative Urine Protein Negative Negative Urine Leukocytes Trace Abnormal Negative Urine Blood 1+ Abnormal Negative Urine Nitrite Positive Abnormal Negative Urine Bilirubin Negative Negative Urine Glucose Negative Negative Urine White Blood Cell Trace(0-5/hpf) Absent Urine Red Blood Cell 1+(3-5/hpf) Abnormal Absent Urine Bacteria 1+ Abnormal Absent Urine Squamous Epithelial Cell Present Abnormal Absent Comp Metabolic 07/11/2019 [facility] Sodium 140 mmol/L Normal 135-145 Panel [address] [place] [address] [phone] Potassium 3.6 mmol/L Normal 3.5-5.0 Chloride 104 mmol/L Normal 101-111 Co2 Carbon Dioxide 31 mmol/L Normal 22-32 Anion Gap 5 mmol/L Normal 2-11 Glucose 95 mg/dL Normal 70-100 Blood Urea Nitrogen 15 mg/dL Normal 6-24 Creatinine 0.90 mg/dL Normal 0.51-0.95 BUN/Creatinine Ratio 16.7 Normal 8-20 Calcium 9.5 mg/dL Normal 8.6-10.3 Total Protein 6.5 g/dL Normal 6.4-8.9 Albumin 4.5 g/dL Normal 3.2-5.2 Globulin 2.0 g/dL Normal 2-4 Albumin/Globulin Ratio 2.3 Normal 1-3 Total Bilirubin 0.60 mg/dL Normal 0.2-1.0 Alkaline Phosphatase 47 U/L Normal 34-104 Alt 12 U/L Normal 7-52 Ast 14 U/L Normal 13-39 Egfr Non- 65.0 >60 Egfr 78.7 >60 2 Inr/Protime 07/11/2019 [facility] Inr 0.95 Normal 0.82-1.[address] [place] [address] [phone] Laboratory test 07/11/2019 [facility] Partial 34.5 Normal 26.0 -38.0 [address] [place] [address] Time PTT [phone] CBC Auto Diff 07/11/2019 [facility] White Blood 6.0 10^3/uL Normal 3.5-10.[address] [place] [address] [phone] Red Blood Count 4.58 10^6/uL Normal 3.70-4.87 Hemoglobin 14.7 g/dL Normal 12.0-16.0 Hematocrit 42 % Normal 35-47 Mean Corpuscular Volume 91 fL Normal 80-97 Mean Corpuscular Hemoglobin 32 pg High 27-31 Mean Corpuscular HGB Conc 35 g/dL Normal 31-36 Red Cell Distribution Width 13 % Normal 10-15 Platelet Count 196 10^3/uL Normal 150-450 Mean Platelet Volume 10.8 fL High 7.4-10.4 Abs Neutrophils 3.6 10^3/uL Normal 1.5-7.7 Abs Lymphocytes 1.9 10^3/uL Normal 1.0-4.8 Abs Monocytes 0.4 10^3/uL Normal 0-0.8 Abs Eosinophils 0.1 10^3/uL Normal 0-0.6 Abs Basophils 0.0 10^3/uL Normal 0-0.2 Abs Nucleated RBC 0.0 10^3/uL Granulocyte % 59.5 % Lymphocyte % 31.5 % Monocyte % 6.8 % Eosinophil % 1.7 % Basophil % 0.5 % Nucleated Red Blood Cells % 0.1 Type & Screen 07/11/2019 [facility] Patient Blood Type A Positive [address] [place] [address] [phone] Antibody Screen NEGATIVE Urine Culture And 07/11/2019 [facility] Urine Culture SEE RESULT [address] [place] [address] [phone] 1 AA 07/21 2 Because ethnic data is not always readily available, this report includes an eGFR for both -Americans and non- Americans. The National Kidney Disease Education Program (NKDEP) does not endorse the use of the MDRD equation for patients that are not between the ages of 18 and 70, are , have extremes of body size, muscle mass, or nutritional status, or are non- or non-. According to the National Kidney Foundation, irrespective of diagnosis, the stage of the disease is based on the level of kidney function: Stage Description GFR(mL/min/1.73 m(2)) 1 Kidney damage with normal or decreased GFR 90 2 Kidney damage with mild decrease in GFR 60-89 3 Moderate decrease in GFR 30-59 4 Severe decrease in GFR 15-29 5 Kidney failure <15 (or dialysis) 3 Standard intensity warfarin therapeutic range: 2.0-3.0 High intensity warfarin therapeutic range: 2.5-3.5 4 AA 07/21 5 SEE RESULT BELOW Name: NEVA SAAB : [address]: Von Kitchen MD Acct: [id number] Unit: [id number] AGE: 53 Location: PAT Re07/11/19 SEX: F Status: REG REF SPEC: [id number] KETTY: 07/11/19 [facility] DR: Von Kitchen MD REQ: [id number] RECD: 07/11/19 STATUS: MISAEL MOROCHO DR: Kyree Torre MD _ SOURCE: URINE SPDESC: ORDERED: Urine Culture COMMENTS: LENA 07/21 QUERIES: Urine Source: Clean Catch Procedure Result Reported Site Urine Culture Final 07/13/19- 0947 ML Organism 1 ESCHERICHIA COLI Botkins Count >100,000 (Many) CFU/ML 1. ESCHERICHIA COLI M.I.C. RX --------- ------ Ampicillin 16 I Cefazolin <=4 S Cefepime <=1 S Ceftriaxone <=1 S Ciprofloxacin >=4 R Gentamicin <=1 S Levofloxacin >=8 R Meropenem <=0.25 S Nitrofurantoin <=16 S Tetracycline <=1 S Pipercillin/Tazobactam <=4 S Trimethoprim/Sulfamethoxazole <=20 S Amoxicillin/Clavulanic Acid 4 S Aztreonam <=1 S Contact the Microbiology Department for any additional antibiotic reporting. * ML - Main Lab . END OF REPORT DEPARTMENT OF PATHOLOGY, [address] [place] [address] Jose Parikh M.D. Director [facility] # [id number] Procedures Description No Information Available Medical Devices Description No Information Available Encounters Type Date Location Provider Dx Diagnosis Office Visit 06/04/2019 [facility] Magallanes Unilateral primary 2:[email or web address] Mccrary osteoarthritis, left knee Assessments Date Code Description Provider 06/12/2019 [facility] Unilateral primary osteoarthritis, left knee Von Kitchen M.D. 06/11/2019 [facility] Unilateral primary osteoarthritis, left knee Von Kitchen M.D. 06/04/2019 [facility] Unilateral primary osteoarthritis, left knee Von Kitchen M.D. Plan of Treatment Future Appointment(s):08/13/2019 9:00 am - Von Kitchen M.D. at [facility]07/21/2019 11:00 am - VELVET Morales at [facility]07/21/2019 11:00 am - Von Kitchen M.D. [facility] Functional Status Description No Information Available Mental Status Description No Information Available Referrals Description No Information Available
[2019-07-21] MEDS ORDERED: Gabapentin CAP(*) 300 MG ONE (08:14)
[2019-07-21] MEDS ORDERED: Acetaminophen TAB* 325 MG ONE (08:15)
[2019-07-21] MEDS ORDERED: Famotidine IV* 10 MG/ML 2 ML (20 mg) ONE (08:15)
[2019-07-21] MEDS ORDERED: ceFAZolin 2 GM in NS PREMIX(*) 2 GM/100 ML BAG IVPB ONE (08:15)
[2019-07-21] MEDS ORDERED: ROPIVACAINE 5 MG/ML 30 ML BTL (0.5%) ONE (09:02)
[2019-07-21] MEDS ORDERED: Propofol* 10 MG/ML 20 ML BTL ONE (09:02)
[2019-07-21] MEDS ORDERED: Ondansetron INJ* 2 MG/ML VIAL ONE (09:02)
[2019-07-21] MEDS ORDERED: Lidocaine 2% PF * 5 ML VIAL ONE ×2 (09:02→12:24)
[2019-07-21] MEDS ORDERED: fentaNYL* 50 MCG/ML 2 ML VIAL (100 MCG VIAL) ONE ×2 (09:02→15:02)
[2019-07-21] MEDS ORDERED: Dexamethasone IV* 4 MG/ML 1 ML (4 MG) ONE (09:02)
[2019-07-21] MEDS ORDERED: Ketorolac INJ* 30 MG/ML 1 ML VIAL ONE (09:02)
[2019-07-21] MEDS ORDERED: Midazolam* 1 MG/ML 10 ML VIAL (10 MG) ONE (09:03)
[2019-07-21] MEDS ORDERED: KETAMINE HCL* 50 MG/ML 10 ML VIAL ONE (09:03)
[2019-07-21] MEDS ORDERED: Tranexamic Acid 1,000 MG in NS 0.9% 50 ML IV ONE (11:00)
[2019-07-21] MEDS ORDERED: Lidocaine 1% w EPI 1:200,000* SDV 30 ML VIAL ONE (11:32)
[2019-07-21] MEDS ORDERED: Bupivacaine 0.5% SDV PF* 30ML VIAL ONE (11:56)
[2019-07-21] MEDS ORDERED: Propofol* 500 MG/50 ML BTL ONE (12:22)
[2019-07-21] MEDS ORDERED: Bupivacaine 0.5%* 50 ML MDV VIAL ONE (12:34)
[2019-07-21] MEDS ORDERED: fentaNYL* 50 MCG/ML 2 ML VIAL (100 MCG VIAL) IV PRN (13:27)
[2019-07-21] MEDS ORDERED: Naloxone* 0.4 MG/ML 1 ML VIAL IV PRN (13:27)
[2019-07-21] MEDS ORDERED: Ondansetron INJ* 2 MG/ML VIAL IV PRN ×2 (13:27→15:01)
[2019-07-21] MEDS ORDERED: diPHENhydraMINE PO* 25 MG PO PRN (15:01)
[2019-07-21] MEDS ORDERED: Ondansetron ODT TAB* 4 MG PO PRN (15:01)
[2019-07-21] MEDS ORDERED: Magnesium Hydroxide LIQ* 30 ML UDC PO PRN (15:01)
[2019-07-21] MEDS ORDERED: diPHENhydraMINE IV* 50 MG/ML 1 ml VIAL (BENADRYL) IV PRN (15:01)
[2019-07-21] MEDS ORDERED: Albuterol 2.5 MG/3 ML NEB.SOL* (0.083%) INH PRN (15:04)
[2019-07-21] MEDS ORDERED: Albuterol HFA INHALER* 8 gm MDI INH PRN (15:04)
[2019-07-21] MEDS: D5W 1/2 NS 1000 ML BAG* 1,000 ML IV SCH (17:40)
[2019-07-21] MEDS: traMADol TAB* 50 MG PO PRN (19:54)
[2019-07-21] MEDS: ceFAZolin 1 GM ADVAN(*) 1 GM in NS 0.9% 50 ML* 50 ML IVPB SCH (20:36)
[2019-07-21] MEDS: Docusate CAP* 100 MG PO SCH (20:37)
[2019-07-21] MEDS: Oxybutynin TAB* 5 MG PO SCH (20:37)
[2019-07-21] MEDS: Magnesium Hydroxide LIQ* 30 ML UDC PO SCH (20:39)
[2019-07-21] MEDS: Ketorolac INJ* 30 MG/ML 1 ML VIAL IV PRN (20:40)
[2019-07-21] MEDS ORDERED: PARoxetine HCL TAB* 40 MG PO SCH (21:00)
[2019-07-21] MEDS: Morphine INJ* 2 MG/ML 1 ML SYRINGE (TWO MG - NEW SYRINGE VERSION) IV PRN (22:30)
[2019-07-22] MEDS: Cyclobenzaprine TAB* 10 MG PO PRN ×3 (00:10→12:41)
--- NOTE | 2019-07-22 00:36 | OP ---
DATE OF OPERATION: 07/21/19 - ROOM #342 DATE OF : 61 ATTENDING SURGEON: Von Kitchen MD FOOD SERVICE WORKER: Lexy Goldsmith RPA ANESTHESIA: Spinal and regional plus sedation. PRE-OP DIAGNOSIS: Osteoarthritis, left knee. POST-OP DIAGNOSIS: Osteoarthritis, left knee. OPERATIVE PROCEDURE: Left total knee arthroplasty. ESTIMATED BLOOD LOSS: 100 cc. COMPLICATIONS: None. HARDWARE: Gay and Nephew 6 narrow Oxinium Legion femur, Ayesha II #5 tibia, 9 mm posterior-stabilized polyethylene, 35 mm all polyethylene patellar button. SUMMARY: Ms. Wood is a 53-year-old female who has had troubles with knee pain for quite some time. She had been treated conservatively with anti- inflammatories, physical therapy, and had undergone a knee arthroscopy previously. These had worked well until recently where she has been having more troubles with pain and limitations because of the knee. By x-ray, she had significant end-stage changes. I discussed with her that a knee arthroplasty should work well to decrease her pain and improve her function. Risks of surgery such as infection, scar formation, stiffness, DVT, pulmonary embolism, hardware failure, and continued pain were some of the risks discussed. She had been declared medically optimized and wished to proceed. DESCRIPTION OF PROCEDURE: The patient had a femoral nerve block placed in the holding area and was brought back to the OR. Spinal anesthesia was introduced. Ryan catheter was placed. Tourniquet was placed over the proximal left thigh and was used during the case. Total tourniquet time would be 101 minutes. Left knee was prepped and then draped. Esmarch was used to exsanguinate the leg and the tourniquet was raised. Midline incision was made beginning at the level of the tibial tubercle and was carried approximately 4 fingerbreadths above the superior pole of the patella. Incision was carried down through the skin and subcutaneous tissues. Small bleeders encountered were ligated using electrocautery. The extensor mechanism was exposed and a sharp parapatellar arthrotomy was made. Gush clear yellowish joint fluid was encountered. Soft tissues were sharply elevated from the medial side of the tibia and the fat pad was sharply excised. Patella measured 24 mm in thickness and a nice 10-mm cut was taken. Patella was then easily subluxed laterally. Rongeur was then used to take down a lot of the bone spurs around the medial and lateral femur as well as some on the tibia. Tibial and femoral pins were then placed and then the outrigger pins were placed as well. Outrigger was assembled and the knee was taken through a range of motion. Using the Navio wand, the medial and lateral malleoli were identified as was the tibial center, femoral center, and then Aubrie's line. Femur was then scanned into the Navio as was the tibia. Adjustments to the components were made as well as rotation to optimize flexion and extension gaps as well as not to notch. Once I liked all of the alignments, yaima was then used to resect the distal end of the femur and the peg holes were also drilled. Cutting guide was placed and then impacted into place. This was then double checked using the flat top and alignment was quite good. Anterior and posterior femoral cuts followed by the chamfer cuts were taken. Attention was turned to the proximal tibia. In similar fashion, peg holes were drilled and tibial cutting guide was placed. Tibial cut was made and it appeared a nice cut was obtained. Spacer block was placed and she came out nicely in full extension, had a good stability and even at 90 degrees she had excellent stability with her flexion gaps as well. The six standard appeared a little bit wide, so a 6 narrow was called for. This was then pinned into place and the tibial notch was then reamed and then the osteotome was used to finish the box cut. Attention was turned to the tibia. The 5 seemed to fit quite nicely and this was pinned into place. Proximal tibia was drilled and then punched. Trial polyethylene was placed and with flexion and extension even with pins in, patellar tracking was good. With the Navio guidance for flexion and extension, the gaps appeared good and even with varus and valgus stress views, the tracking was quite good. Trial instrumentation was removed as were the outrigger pins. Patella was sized at a 35 and holes were drilled for the actual implant. Pulse lavage was used to clean up the knee and cement was being prepared. Tibia followed by femur and patella were all cemented into place. Cement was allowed to harden and once the cement had hardened, the knee was searched for additional loose small pieces of cement and debris. Some were found and these were all cleaned up. Using the trial, she had the same wonderful motion and the patellar tracking was perfect. Polyethylene was attempted to be snapped into place, but it just would not seat. Eventually, a second one was called for and this one seated relatively easily. Knee was again copiously pulse lavaged and tourniquet was let down. One pumper was ligated using electrocautery and knee was again copiously pulse lavaged. Parapatellar arthrotomy was then repaired using interrupted #1 Vicryl sutures. She was taken through a range of motion and patellar tracking appeared perfect and none of the sutures gave in when she was flexed back past 135 degrees. Stability was excellent throughout. Knee was again pulse lavaged and subcutaneous tissues were reapproximated using 2-0 Vicryl. Skin was closed using darwin. Sterile dressing and a Cryo-Cuff were applied in the OR. The patient was then awakened and stable on transfer to the recovery room. [id number]/CPS #: [id number] FELICITAS
[2019-07-22] MEDS: traMADol TAB* 50 MG PO PRN (02:00)
[2019-07-22] MEDS: Ketorolac INJ* 30 MG/ML 1 ML VIAL IV PRN (03:35)
[2019-07-22] MEDS: D5W 1/2 NS 1000 ML BAG* 1,000 ML IV SCH (03:40)
[2019-07-22] MEDS: ceFAZolin 1 GM ADVAN(*) 1 GM in NS 0.9% 50 ML* 50 ML IVPB SCH ×2 (04:22→12:41)
[2019-07-22] MEDS: Morphine INJ* 2 MG/ML 1 ML SYRINGE (TWO MG - NEW SYRINGE VERSION) IV PRN (04:25)
[2019-07-22 05:48] LABS: Hematocrit 33 % (35-47); Hemoglobin 11.6 g/dL (12.0-16.0); Mean Platelet Volume 10.8 fL (7.4-10.4); Platelet Count 137 10^3/uL (150-450)
[2019-07-22 06:10] LABS: BUN/Creatinine Ratio 21.2 (8-20); Calcium 8.3 mg/dL (8.6-10.3); EGFR Non-African American 69.4 (>60); Potassium 3.4 mmol/L (3.5-5.0)
--- NOTE | 2019-07-22 08:04 | PN ---
Progress Note - Progress Note Date of Service: 07/22/19 SOAP: Subjective: []Pt seen at bedside, she feels well without CP, SOB, dizziness, nausea. Objective: []Gen: Appears well, NDA LLE: Left knee dressing changed, incision CDI without erythema or edema. Thigh soft, DF/PF intact, DP2+, sensation intact to light touch distally Calves supple and nontender without erythema, edema or palpable cord s Assessment: []LTK pod 1 Plan: []WBAT PT/OT potassium 20 meq Q 12 hr while in house, recheck K+ outpt within 3 days warfarin 8 mg tonight, heparin bridge in house okay to use ASA outpt to bridge Vital Signs Temp 98.7 F 07/22/19 11:27 Pulse 60 07/22/19 11:27 Resp 16 07/22/19 14:36 BP 107/43 07/22/19 11:27 Pulse Ox 98 07/22/19 11:27 Intake & Output 07/21/19 07/22/19 07/22/19 18:59 06:59 18:59 Intake Total 2700 1990 1255 Output Total 650 Balance 2700 1340 1255 Weight 203 lb Intake: IV Fluids 2700 980 990 D5W 1/2 NS 980 990 LR 2700 IVPB 50 55 ABX - CEFAZOLIN 50 55 Oral 960 210 Output: Urine 250 Ryan 400 Other: Estimated Void Medium # Voids 1 Laboratory Last Values Hgb 11.6 g/dL (12.0-16.0) L 07/22/19 05:31 Hct 33 % (35-47) L 07/22/19 05:31 Plt Count 137 10^3/uL (150-450) L 07/22/19 05:31 MPV 10.8 fL (7.4-10.4) H 07/22/19 05:31 INR (Anticoag Therapy) 1.00 (0.82-1.09) 07/22/19 05:31 Sodium 139 mmol/L (135-145) 07/22/19 05:31 Potassium 3.4 mmol/L (3.5-5.0) L 07/22/19 05:31 Chloride 106 mmol/L (101-111) 07/22/19 05:31 Carbon Dioxide 29 mmol/L (22-32) 07/22/19 05:31 Anion Gap 4 mmol/L (2-11) 07/22/19 05:31 BUN 18 mg/dL (6-24) 07/22/19 05:31 Creatinine 0.85 mg/dL (0.51-0.95) 07/22/19 05:31 Est GFR ( Amer) 84.0 (>60) 07/22/19 05:31 Est GFR (Non-Af Amer) 69.4 (>60) 07/22/19 05:31 BUN/Creatinine Ratio 21.2 (8-20) H 07/22/19 05:31 Glucose 146 mg/dL (70-100) H 07/22/19 05:31 Calcium 8.3 mg/dL (8.6-10.3) L 07/22/19 05:31
[2019-07-22] MEDS: Docusate CAP* 100 MG PO SCH (08:57)
[2019-07-22] MEDS: Magnesium Hydroxide LIQ* 30 ML UDC PO SCH (08:57)
[2019-07-22] MEDS: traMADol TAB* 50 MG PO SCH ×2 (08:58→14:36)
[2019-07-22] MEDS: Oxybutynin TAB* 5 MG PO SCH ×2 (08:58→14:37)
[2019-07-22] MEDS: Heparin VIAL(*) 5000 UNITS/ML VIAL (FIVE THOUSAND) SUBCUT SCH ×2 (08:59→14:37)
[2019-07-22] MEDS ORDERED: Pantoprazole TAB * 40 MG TAB PO SCH (09:00)
[2019-07-22] MEDS ORDERED: Methylphenidate ER 27 MG TAB PO SCH (09:00)
[2019-07-22] MEDS ORDERED: Potassium Chloride* LIQUID 20 MEQ/15 ML UDC PO SCH (09:00)
[2019-07-22] MEDS ORDERED: Vitamin THERAPEUTIC TAB PO SCH (09:00)
[2019-07-22] MEDS ORDERED: Montelukast Sodium TAB* 10 MG PO SCH (09:00)
[2019-07-22 11:28] VITALS: BP 107/43
--- NOTE | 2019-07-22 13:25 | DS ---
Orthopedic Discharge Summary - Discharge Summary Date of Admission:07/21/19 Date of Discharge: 07/22/19 Date of Surgery: 07/21/19 Attending Orthopedic Provider: Dr Kitchen Pre-operative Diagnosis: left knee osteoarthritis Operative Procedure: left total knee replacement, Navio Disposition of Patient: home with outpt services Condition of Patient: stable History: NEVA SAAB is a 53 year old F with years of increasingly severe left knee pain. Patient has failed conservative management and has elected to undergo a left total knee replacement Hospital Course: NEVA was admitted to [facility] on 07/21/19. Patient underwent a left total knee replacement without complication followed by a brief recovery in PACU and transfer to the Short Stay Surgical Unit in stable condition. Our physical therapy service also participated in this patients care. Post-op day 1: patient was alert and in no acute distress. Dressing was clean, dry and intact. Operative extremity dorsiflexion and plantarflexion intact, sensation intact to light touch distally, DP2+. Prior to DC: dressing was changed, incision was clean, dry and intact. Patient was deemed to be medically and orthopedically stable for discharge. Physical therapy goals were met. Home Medications Medication Instructions Recorded Confirmed Type Albuterol 2.5MG/3ML (0.083%)* 2.5 mg INH Q4H PRN 06/18/13 07/21/19 History [Ventolin 2.5 MG/3 ML NEB.[place]*] Albuterol HFA INHALER* [Ventolin 2 puff INH Q4H PRN 03/14/17 07/21/19 History HFA Inhaler*] Cyanocobalamin INJ * [Vitamin B12 1,000 mcg IM SEE INSTRUCTIONS 03/14/17 History INJ *] Oxybutynin TAB* [Ditropan TAB*] 5 mg PO TID 03/14/17 07/21/19 History PARoxetine HCL TAB* [Paxil TAB*] 40 mg PO BEDTIME 03/14/17 07/21/19 History Montelukast Sodium TAB* [Singulair 10 mg PO QAM 06/11/17 07/21/19 History 10 MG TAB*] Methylphenidate HCl 15 mg PO 1330 06/12/18 07/21/19 History [Methylphenidate HCl ER (Cd)] Omeprazole 20 mg PO QAM 06/12/18 07/21/19 History hydroCHLOROthiazide 12.5 mg PO QAM 06/12/18 07/21/19 History [Hydrochlorothiazide] Methylphenidate HCl 27 mg PO QAM 07/11/19 07/21/19 History [Methylphenidate ER] Docusate CAP* [Colace Cap*] 100 mg PO BID PRN #90 cap 07/22/19 Rx Warfarin TAB(*) [Coumadin TAB(*)] 2 mg PO DAILY 30 Days #90 tab 07/22/19 Rx traMADol TAB* [Ultram*] 50 mg PO Q6H PRN #56 tab MDD 8 07/22/19 Rx Discharge Instructions following Orthopedic Surgery: Activity: * Weight Bearing as tolerated * Continue physical therapy and occupational therapy exercises as shown * outpatient PT Wound care: * OK to shower on post-op day 3, no bathing, swimming, or submerging wound. * Use gentle soap, pat dry. Cover with gauze, GLENNA wrap or tape. Call Orthopedic office for: * Increased drainage * Redness * Increased pain * Fever Go to ER with shortness of breath or chest pain. Diet: * Regular diet * Increase fluids and fiber to prevent constipation. * Continue to use stool softeners, call office if no bowel motion within 48 hours. * Lab: Mildly low potassium, please have a lab draw within 3 days of discharge to recheck potassium Medications See Home Medication List in your packet for medications that you should take after discharge. DVT Prophylaxis: Coumadin Dosing: * Please note that you have been given 2 mg tablets. * Visiting home nurse to draw blood work for INR on Sunday and . * You will be provided with dose instructions on Mondays and . * If you do not receive dosing instruction on dosing, please call our office right away. Please paige dosing instructions on your calendar as they are provided to you. * Dosing: INR blood draw for further dosing instructions. Call orthopedic office if you do not receive dosing instructions. In addition to coumadin, please take aspirin 325 mg daily until INR is therapeutic. Ortho office will instruct when to stop. Pain Control: Tramadol 50 mg 1 tab for mild pain and 2 tabs for severe pain every 6 hours as needed. Hold for sedation and wean off as soon as pain allows. Antibiotics are required prior to any dental work. FOLLOW UP: Follow up with [Imt[facility]] Within 4 weeks, call for appointment You will need your darwin removed in 2 weeks, please call the orthopedic office to arrange for this. Please call our office with any questions or concerns ([phone])
[2019-07-22] MEDS ORDERED: Methylphenidate TAB* 5 MG PO SCH (13:30)
[2019-07-22] MEDS ORDERED: Warfarin TAB(*) 4 MG PO ONE (17:00)
[2019-07-23] MEDS ORDERED: Bisacodyl SUPP* 10 MG SUPP PR PRN (15:01)
[2019-08-21] MEDS ORDERED: Cyanocobalamin INJ * 1,000 MCG/ML VIAL 1 ML VIAL IM SCH (09:00)
== END 2019-07-22 15:56 | disposition home or self-care (01) | DRG 302 ==
LOC: AA 07:36 → SSU 17:28
PROVIDERS: ADMIT Orthopaedic Surgery; ATTEND Orthopaedic Surgery
PROC: 8E0Y0CZ Robotic Assisted Procedure of Lower Extremity, Open Approach (ICD-10-PCS; 2019-07-21)
PROC: 0SRD069 Replacement of Left Knee Joint with Oxidized Zirconium on Polyethylene Synthetic Substitute, Cemented, Open Approach (ICD-10-PCS; principal; 2019-07-21 10:30)
DX: M17.12 Unilateral primary osteoarthritis, left knee (principal); I10 Essential (primary) hypertension; J44.9 Chronic obstructive pulmonary disease, unspecified; F32.9 Major depressive disorder, single episode, unspecified; G47.419 Narcolepsy without cataplexy; F17.210 Nicotine dependence, cigarettes, uncomplicated; M25.462 Effusion, left knee; I89.0 Lymphedema, not elsewhere classified; E53.8 Deficiency of other specified B group vitamins; M54.5 Low back pain; G89.29 Other chronic pain; G43.909 Migraine, unspecified, not intractable, without status migrainosus; F43.10 Post-traumatic stress disorder, unspecified; I73.9 Peripheral vascular disease, unspecified; R32 Unspecified urinary incontinence; K21.9 Gastro-esophageal reflux disease without esophagitis; F41.9 Anxiety disorder, unspecified; N63.0 Unspecified lump in unspecified breast; Z88.1 Allergy status to other antibiotic agents; Z88.6 Allergy status to analgesic agent; Z90.49 Acquired absence of other specified parts of digestive tract; Z98.51 Tubal ligation status; Z72.89 Other problems related to lifestyle; Z80.3 Family history of malignant neoplasm of breast; Z97.2 Presence of dental prosthetic device (complete) (partial); Z88.2 Allergy status to sulfonamides
CPT/HCPCS: 36415; 80048; 85014; 85018; 85049; 85610; 88305; 88311; A9270-GY; C1776; G8978-GP-CJ; G8979-GP-CI; J0690; J1100; J1644; J1885; J2001; J2250; J2270; J2405; J2704; J2795; J3010; J3420; J3490

== ENCOUNTER 2019-07-25 17:10 | Emergency (ER) | payer OTHER ==
[2019-07-25] MEDS ORDERED: oxyCODONE/Acetamin 5/325 MG* TAB PO ONE (17:55)
--- NOTE | 2019-07-25 17:59 | ED ---
Lower Extremity - HPI Summary HPI Summary: 53 year [place] [facility] [place] complains of left lower calf cramping that has gradually moved to her left mid calf, then left knee, and left upper thigh beginning this afternoon at 13:30. The patient states the cramping is currently located in her left upper thigh. Patient reports worsening left knee pain rated 7/10 in severity and left knee swelling since yesterday. Had total left knee replacement done by Dr. Eduardo on Sunday. Has been taking Tramadol and oxycodone to treat the pain, last taken more than 4 hours ago. Symptoms aggravated by nothing. Symptoms alleviated by Tramadol and oxycodone. - History of Current Complaint Chief Complaint: EDExtremityLower Stated Complaint: POSS BLOOD CLOT PER PT Time Seen by Provider: 07/25/19 17:42 Hx Obtained From: Patient Onset/Duration: Still Present Severity Currently: Moderate Pain Intensity: 7 Pain Scale Used: 0-10 Numeric Timing: Constant Aggravating Factor(s): Nothing Alleviating Factor(s): Nothing - Allergies/Home Medications Allergies/Adverse Reactions: Allergies Allergy/AdvReac Type Severity Reaction Status Date / Time acetaminophen [From Percocet] Allergy Severe Itching Verified 07/25/19 17:23 oxycodone [From Percocet] Allergy Severe Itching Verified 07/25/19 17:23 sulfamethoxazole Allergy Severe pain in Verified 07/25/19 17:23 [From Bactrim] legs, RL syndrome trimethoprim [From Bactrim] Allergy Severe pain in Verified 07/25/19 17:23 legs, RL syndrome PMH/Surg Hx/FS Hx/Imm Hx Endocrine/Hematology History: Reports: Hx Thyroid Disease - hypo Denies: Hx Diabetes Cardiovascular History: Reports: Hx Peripheral Vascular Disease - varicose veins Denies: Hx Angina, Hx Congestive Heart Failure, Hx Coronary Artery Disease, Hx Hypercholesterolemia, Hx Hypertension, Hx Myocardial Infarction, Hx Pacemaker /ICD, Hx Valvular Heart Disease Respiratory History: Reports: Hx Chronic Obstructive Pulmonary Disease (COPD), Other Respiratory Problems/Disorders - COPD SMOKING HX 1/2 DAY Denies: Hx Asthma GI History: Reports: Hx Gastroesophageal Reflux Disease - omeprazole, Other GI Disorders - CHRONIC ISSUES WITH CONSTIPATION AND DIARRHEA History: Reports: Other Problems/Disorders - prolapsed bladder Denies: Hx Renal Disease Musculoskeletal History: Reports: Hx Arthritis - GENERALIZED, Hx Back Problems, Hx Tendonitis - LEFT FOOT BACK- had surgery Sensory History: Reports: Hx Contacts or Glasses - reading Denies: Hx Hearing Aid Opthamlomology History: Reports: Hx Contacts or Glasses - reading Neurological History: Reports: Hx Headaches - migraines, Hx Migraine, Hx Nerve Disease - neuropathy- feet, Other Neuro Impairments/Disorders - narcolepsy Psychiatric History: Reports: Hx Anxiety, Hx Depression Denies: Hx Panic Disorder - Cancer History Hx Chemotherapy: No Hx Radiation Therapy: No - Surgical History Surgery Procedure, Year, and Place: Left knee replacement 07/21/19. Lt KNEE - ARTHROSCOPIC -09/2015, left foot. CHOLECYSTECTOMY- 1988. TUBAL LIGATION - 1985. TONSILECTOMY. APPENDECTOMY. LEFT TENDON REPAIR Hx Anesthesia Reactions: Yes - takes longer to wake up with anything sedative - Immunization History Date of Tetanus Vaccine: unknown Infectious Disease History: Yes Infectious Disease History: Reports: Hx of Known/Suspected MRSA - L leg 2007 Denies: Hx Clostridium Difficile, History Other Infectious Disease, Traveled Outside the [place] in Last 30 Days - Family History Known Family History: Positive: Hypertension - father, Diabetes - father - Social History Alcohol Use: None Alcohol Amount: 2 X YEAR Hx Substance Use: Yes Substance Use Comment - Amount & Last Used: for pain Hx Tobacco Use: Yes Smoking Status (MU): Light Every Day Tobacco Smoker Type: Cigarettes Amount Used/How Often: 1/2 PPD 30 years Length of Time of Smoking/Using Tobacco: since age 23 Have You Smoked in the Last Year: Yes Review of Systems Negative: Fever Positive: Other - left upper thigh cramping, left knee pain, left knee swelling All Other Systems Reviewed And Are Negative: Yes Physical Exam - Summary Physical Exam Summary: Constitutional: Well-developed, Well-nourished, Alert. (-) Distressed Skin: Warm, Dry, ecchymosis from distal L thigh to L calf, incision w mild erythema no drainage HENT: Normocephalic; Atraumatic Eyes: Conjunctiva normal Neck: Musculoskeletal ROM normal neck. (-) JVD, (-) Stridor, (-) Nuchal rigidity Cardio: Rhythm regular, rate normal, Heart sounds normal; Intact distal pulses; Radial pulses are 2+ and symmetric. (-) Murmur Pulmonary/Chest wall: Effort normal. (-) Respiratory distress, (-) Wheezes, (-) Rales Abd: Soft, (-) tenderness, (-) Distension, (-) Guarding, (-) Rebound Musculoskeletal: ecchymosis of the knee and calf, she has 1+ edema from the left calf to the left foot, 2+ DP pulse in the left lower extremity, mild erythema surrounding her darwin in the left lower extremity Lymph: (-) Cervical adenopathy Neuro: Alert, Oriented x3 Psych: Mood and affect Normal Triage Information Reviewed: Yes Vital Signs On Initial Exam: Initial Vitals Temp Pulse Resp BP Pulse Ox 98.8 F 92 20 93/59 98 07/25/19 17:18 07/25/19 17:18 07/25/19 17:18 07/25/19 17:18 07/25/19 17:18 Vital Signs Reviewed: Yes Diagnostics - Vital Signs Vital Signs Temp Pulse Resp BP Pulse Ox 07/25/19 17:18 98.8 F 92 20 93/59 98 - Laboratory Result Diagrams: 07/25/19 18:37 07/25/19 18:38 Lab Statement: Any lab studies that have been ordered have been reviewed, and results considered in the medical decision making process. - Additional Comments Diagnostic Additional Comments: US Duplex Left Lower Extremity Veins shows, per radiologist: No evidence of left lower extremity DVT. ED physician has reviewed this report. Re-Evaluation - Re-Evaluation First Eval Re-Evaluation Time: 20:22 Comment: US neg, given 40 PO K for hypoK and keflex. Unable to get ahold of her orthopedic surgeon, told to call tomorrow and return for worsening pain, fevers , drainaige from area. Lower Extremity Course/Dx - Course Course Of Treatment: 53 y/o female with a recent left knee replacement presents with left knee pain, calf pain and swelling. Patient not taking Coumadin, and given postoperative state, concern for DVT. Will check an ultrasound. Patient given pain control, check electrolytes given reported hypokalemia during admission as this could cause muscle cramps. Mild erythema over knee near incision site will give keflex. - Diagnoses Provider Diagnoses: Left leg pain, Cellulitis, Hypokalemia Discharge ED - Sign-Out/Discharge Documenting (check all that apply): Patient Departure - Discharge Patient Received Moderate/Deep Sedation with Procedure: No - Discharge Plan Condition: Stable Disposition: HOME Prescriptions: Cephalexin CAP* [Keflex CAP*] 500 mg PO QID 7 Days #28 cap Patient Education Materials: Cellulitis (ED), Hypokalemia (ED), Leg Pain (ED), Knee Replacement (DC) Referrals: Kyree Torre MD [Primary Care Provider] - 2 Days Additional Instructions: You were seen in the emergency department for leg swelling. Your ultrasound is negative. Please take your Coumadin at home as prescribed. Please take Keflex 4 times a day for one week. If any studies were not completed at the time of discharge you will be called with the relevant results. Please follow up with your primary care doctor in next 2-3 days and return to emergency department for worsening or concerning symptoms. It was a pleasure taking care of you today. - Billing Disposition and Condition Condition: STABLE Disposition: Home - Attestation Statements Document Initiated by Leena: Yes Documenting Scribe: Janiya Bah Provider For Whom Leena is Documenting (Include Credential): Patrizia Chandra MD Scribe Attestation: IJaniya, scribed for Patrizia Chandra MD on 07/25/19 at 2101. Scribe Documentation Reviewed: Yes Provider Attestation: The documentation as recorded by the Janiya cowart accurately reflects the service I personally performed and the decisions made by Patrizia schwartz MD Status of Scribe Document: Viewed
[2019-07-25 18:47] LABS: ABS Eosinophils 0.2 10^3/ul (0-0.6); ABS Lymphocytes 1.8 10^3/ul (1.0-4.8); ABS Monocytes 0.6 10^3/ul (0-0.8); ABS Neutrophils 4.2 10^3/ul (1.5-7.7); Eosinophil % 2.4 %; Hematocrit 33 % (35-47); Hemoglobin 11.4 g/dL (12.0-16.0); Lymphocyte % 25.8 %; Mean Corpuscular HGB Conc 35 g/dL (31-36); Mean Corpuscular Hemoglobin 32 pg (27-31); Mean Corpuscular Volume 90 fL (80-97); Mean Platelet Volume 10.1 fL (7.4-10.4); Platelet Count 212 10^3/uL (150-450); Red Cell Distribution Width 13 % (10-15); White Blood Count 6.8 10^3/uL (3.5-10.8)
[2019-07-25 18:52] LABS: INR 1.09 (0.82-1.09)
[2019-07-25 19:05] LABS: Albumin 3.3 g/dL (3.2-5.2); Albumin/Globulin Ratio 1.3 (1-3); BUN/Creatinine Ratio 22.4 (8-20); EGFR Non-African American 69.4 (>60); Globulin 2.6 g/dL (2-4); Potassium 3.1 mmol/L (3.5-5.0); Total Bilirubin 0.7 mg/dL (0.2-1.0); Total Protein 5.9 g/dL (6.4-8.9)
[2019-07-25] MEDS ORDERED: Cephalexin CAP* 500 MG PO ONE (19:05)
[2019-07-25] MEDS ORDERED: Potassium Chlor TAB* 20 MEQ TAB.ER PO ONE (19:23)
[2019-07-25 21:12] VITALS: BP 108/52
== END 2019-07-25 21:09 | disposition home or self-care (01) ==
LOC: ED 17:10
DX: L03.116 Cellulitis of left lower limb (principal); E87.6 Hypokalemia; Z96.652 Presence of left artificial knee joint; E03.9 Hypothyroidism, unspecified; I73.9 Peripheral vascular disease, unspecified; J44.9 Chronic obstructive pulmonary disease, unspecified; K21.9 Gastro-esophageal reflux disease without esophagitis; F41.9 Anxiety disorder, unspecified; F32.9 Major depressive disorder, single episode, unspecified; F17.210 Nicotine dependence, cigarettes, uncomplicated; Z90.49 Acquired absence of other specified parts of digestive tract; Z98.51 Tubal ligation status; Z90.89 Acquired absence of other organs; Z88.6 Allergy status to analgesic agent; Z88.1 Allergy status to other antibiotic agents; Z88.5 Allergy status to narcotic agent; Z88.2 Allergy status to sulfonamides; Z79.82 Long term (current) use of aspirin; Z79.899 Other long term (current) drug therapy
CPT/HCPCS: 36415; 80053; 85025; 85610; 99283; A9270-GY